=== PATIENT | male | born 1945 ===

== ENCOUNTER 2016-07-23 07:18 | Inpatient (IN) | payer OTHER, MEDICARE ==
[2016-07-23 07:18] VITALS: BMI 26.4
--- NOTE | 2016-07-23 07:27 | C.PDOC ---
History Of Present Illness 70M c/o fever, abdominal pain, nausea, vomiting, headache since last night. no exac or reliev fx. has not taken anything for sx. had some chest pain only with vomiting none now. hx cabg. Time Seen by Provider: 07/23/16 07:21 Chief Complaint (Nursing): Dizziness/Lightheaded Past Medical History Vital Signs: Last Vital Signs Temp 97.9 F 07/24/16 07:05 Pulse 66 07/24/16 07:05 Resp 20 07/24/16 07:05 BP 120/65 07/24/16 07:05 Pulse Ox 96 07/24/16 07:05 - Medical History PMH: Anxiety, Arthritis, Gastritis, HTN, Hypercholesterolemia Denies: HIV Surgical History: CABG (2008 pt states they think they had double bypass but is not sure), Coronary Stent (2 stents 2008), Endoscopy (2012), Pacemaker ( inserted 2004, removed 2007) - [facility] Procedures CYSTOSCOPY NEC (07/16/13) ENDOSC POLYPECTOMY OF LG INTEST (10/04/13) ENDOSCOP INSERTION OF STENT (TUBE) INTO BILE DUCT (11/21/14) INSERT INT PENILE PROSTH (01/02/13) Family History: States: Other Other Family History: nc - Social History Hx Alcohol Use: No Hx Substance Use: No - Immunization History Hx Tetanus Toxoid Vaccination: No Review Of Systems Except As Marked, All Systems Reviewed And Found Negative. Constitutional: Positive for: Fever, Chills, Malaise Cardiovascular: Negative for: Chest Pain, Edema Respiratory: Negative for: Cough, Shortness of Breath, Hemoptysis Gastrointestinal: Positive for: Nausea, Vomiting, Abdominal Pain. Negative for : Diarrhea Neurological: Positive for: Headache. Negative for: Weakness, Numbness Physical Exam - Physical Exam Appears: Non-toxic, No Acute Distress Skin: Warm, Dry Head: Atraumatic Eye(s): bilateral: PERRL Nose: No Epistaxis Oral Mucosa: Moist Neck: Supple Cardiovascular: Rhythm Regular Respiratory: No Decreased Breath Sounds, No Accessory Muscle Use, No Rales, No Rhonchi, No Stridor, No Wheezing Gastrointestinal/Abdominal: Soft, Tenderness (LLQ), No Distention, No Guarding, No Rebound Extremity: No Swelling Neurological/Psych: Oriented x3, Other (no focal deficits) ED Course And Treatment - Laboratory Results Result Diagrams: 07/24/16 07:11 07/24/16 07:11 Medical Decision Making Medical Decision Making: ecg- sinus tach 113, nl axis, no acute ischemia cxr- nad Disposition - Disposition Disposition: HOSPITALIZED Disposition Time: 11:58 Condition: STABLE - Clinical Impression Clinical Impression: elevated liver enzymes, Fever, Abdominal pain
[2016-07-23] MEDS ORDERED: Sodium Chloride 0.9% 1,000 ML IV ONE ×2 (07:36→08:57)
[2016-07-23] MEDS ORDERED: Sodium Chloride 0.9% 1,000 ML ONE ×2 (08:04→09:07)
[2016-07-23 08:10] LABS: BASO # 0.1 K/uL (0.0-0.2); BASO % 0.5 % (0.0-2.0); EOS % 0.1 % (0.0-4.0); HEMATOCRIT 43.4 % (35.0-51.0); LYMPH # 0.4 K/uL (1.0-4.3); LYMPH % 2.3 % (20.0-40.0); MEAN CELL VOLUME 83.8 fL (80.0-94.0); MEAN CORPUSCULAR HEMOGLOBIN 28.7 pg (27.0-31.0); MEAN CORPUSCULAR HGB CONC 34.3 g/dL (33.0-37.0); MEAN PLATELET VOLUME 10.7 fL (7.2-11.7); MONO # 1.4 K/uL (0.0-0.8); MONO % 7.6 % (0.0-10.0); NRBC % 0.1 % (0.0-2.0); PLATELET COUNT 145 K/uL (130-400); RED CELL DISTRIBUTION WIDTH 13.5 % (11.5-14.5)
[2016-07-23 08:12] LABS: WHITE BLOOD COUNT 18.1 K/uL (4.8-10.8)
[2016-07-23 08:16] LABS: CHLORIDE 101 mmol/L (98-107); SODIUM 133 mmol/L (132-148)
[2016-07-23 08:17] LABS: POTASSIUM 4.1 mmol/L (3.6-5.2)
[2016-07-23 08:19] LABS: ALKALINE PHOSPHATASE 192 U/L (38-126); ALT/SGPT 161 U/L (21-72); AST/SGOT 134 U/L (17-59); BILIRUBIN,TOTAL 4.6 mg/dL (0.2-1.3); BLOOD UREA NITROGEN 16 mg/dL (9-20); CALCIUM 8.3 mg/dl (8.6-10.4); CARBON DIOXIDE 21 mmol/L (22-30); GFR AFRICAN-AMERICAN > 60; GLUCOSE,RANDOM 110 mg/dL (75-110); TOTAL PROTEIN 8.3 g/dL (6.3-8.3)
[2016-07-23 08:26] LABS: VENOUS BLOOD GAS BASE EXCESS -1.7 mmol/L (0.0-2.0); VENOUS BLOOD GAS PCO2 34 mmHg (40-60); VENOUS BLOOD PH 7.42 (7.32-7.43)
[2016-07-23] MEDS ORDERED: Iohexol 240 (50 ml) ONE (08:32)
[2016-07-23 08:34] LABS: EOSINOPHIL 1 % (0-4); NEUTROPHIL 76 % (50-75); TOTAL CELLS COUNTED 100
[2016-07-23 08:35] LABS: LARGE PLATELETS PRESENT
[2016-07-23] MEDS ORDERED: Piperacill/Tazo 3.375gm in Dex 3.375 GM/50 ML BAG IVPB STA (08:57)
[2016-07-23] MEDS ORDERED: Piperacillin/Tazobact 3.375 gm 100 ML IVPB ONE (09:07)
--- NOTE | 2016-07-23 09:15 | RAD ---
HISTORY: cp COMPARISON: No prior. FINDINGS: LUNGS: No active pulmonary disease. PLEURA: No significant pleural effusion identified, no pneumothorax apparent. CARDIOVASCULAR: Normal heart size. Status post CABG. Pacemaker lead noted without control module. OSSEOUS STRUCTURES: No significant abnormalities. VISUALIZED UPPER ABDOMEN: Normal. OTHER FINDINGS: None. IMPRESSION: No active disease.
[2016-07-23 09:48] LABS: RBC URINE 3 /hpf (0-3); URINE BILIRUBIN NEGATIVE (NEGATIVE); URINE BLOOD 2+ (NEGATIVE); URINE COLOR Amber (YELLOW); URINE GLUCOSE (UA) NORMAL (Normal); URINE KETONE NEGATIVE (NEGATIVE); URINE LEUKOCYTE ESTERASE NEG Leu/uL (Negative); URINE PROTEIN 1+ mg/dL (NEGATIVE); WBC URINE 1 /hpf (0-5)
--- NOTE | 2016-07-23 10:45 | CT ---
PROCEDURE: CT Abdomen and Pelvis without intravenous contrast HISTORY: abd pain COMPARISON: None. TECHNIQUE: Without contrast.. Contrast Dose: 0 Radiation dose: Total exam DLP = 401.90 mGy-cm. This CT exam was performed using one or more of the following dose reduction techniques: Automated exposure control, adjustment of the mA and/or kV according to patient size, and/or use of iterative reconstruction technique. FINDINGS: LOWER THORAX: Unremarkable. LIVER: Unremarkable. No gross lesion or ductal dilatation. GALLBLADDER AND BILE DUCTS: No calcified gallstones. No mural thickening. Biliary stent noted in common bile duct extending to the 2nd portion of the duodenum. No biliary dilatation. PANCREAS: Unremarkable. No gross lesion or ductal dilatation. SPLEEN: Unremarkable. ADRENALS: Unremarkable. No mass. KIDNEYS AND URETERS: Unremarkable. No hydronephrosis. No solid mass. VASCULATURE: Unremarkable. No aortic aneurysm. BOWEL: Unremarkable. No obstruction. No gross mural thickening. APPENDIX: Unremarkable. Normal appendix. PERITONEUM: Unremarkable. No free fluid. No free air. LYMPH NODES: Unremarkable. No enlarged lymph nodes. BLADDER: Unremarkable. REPRODUCTIVE: Normal prostate BONES: No acute fracture. OTHER FINDINGS: None. IMPRESSION: No acute abnormality. Biliary stent noted. No evidence of biliary obstruction. No evidence of cholelithiasis or cholecystitis.
--- NOTE | 2016-07-23 14:14 | CP.PCM.HP ---
History of Present Illness - History of Present Illness History of Present Illness: COMPREHENSIVE HISTORY & PHYSICAL EXAM HPI 70M c/o fever, abdominal pain, nausea, vomiting, headache since last night. NO VOMITING . NO CP PAST HIST. 2 BILIARY STENT 2016 CABG 2-3 V WITH 2 MORE STENTS HTN/DM BLADDER SURGERY/PENILE PRASTHESIS PER. PACEMAKER 2005, REMOCED 2007 PERSONAL HIST: Smoking. N Alcohol. N Allergy N Travel_- . FAMILY HIST : ROS : Constitutional: GEN MALAISE Eyes: Negative for redness, swelling, itching, discharge, vision changes, blurry vision, double vision, glaucoma, cataracts, Ears: Negative for hearing loss, ringing, , tinnitus, vertigo Nose: Negative for rhinorrhea, stuffiness, sniffing, itching, postnasal drip, discoloration, nasal congestion and epistaxis. Throat: Negative for throat clearing, sore throat, hoarseness, difficulty swallowing and difficulty speaking. Respiratory: Negative for cough, chest tightness, sputum or phlegm, chronic cough, hemoptysis, wheezing, snoring at night, pleuritic chest pain and daytime somnolence. Cardiovascular: Negative for chest pain, palpitations, orthopnea, PND, Edema of legs, leg cramps, angina, claudication, , irregular heartbeat, Neurology: Negative for irritability, muscle weakness, numbness and tingling, seizures, tremors, migraines, slurred speech, syncope, memory loss, mood changes , recurrent headaches Gastrointestinal: GEN ABD PAIN, NUSEA NO VOMITING/GI BLEEDING Genitourinary: Negative for frequent urination, hematuria, discharge, incontinence, urinary retention, frequent UTI, Psychiatric: Negative for depression, anxiety/panic, suicidal tendencies, Musculoskeletal: Negative for swollen joints, back pain, , neck pain, morning stiffness of joints, . Skin: Negative for rash, ulcers, itching, dry skin and pigmented lesions. P/E: Constitutional: Appears stated age and in no apparent distress. Head: Normocephalic. Ears: External ear canals patent without inflammation. Tympanic membranes intact with normal light reflex and landmark. Eyes: Pupils are central, bilaterally equal, symmetrical and reacts to light with normal movements and no icterus or pallor. Nose: External nares are patent. Mucosa is pink Mouth-Throat: Good general appearance and condition. No post-pharyngeal/oropharyngeal erythema and tonsillar hypertrophy. Good dental hygiene. Neck-Lymphatic: Neck is supple with normal ROM, no thyromegaly, lymph nodes or masses. JVD is normal with no carotid bruit. Lungs: Clear to percussion and auscultation with bilateral normal air entry. Cardiovascular: S1 and S2 are normal with no murmurs, gallops and rub. GI Exam: No hepatomegaly. Abdomen is soft and non-tender. No Organomegaly , masses or hernias are evident and bowel sounds are normal and active. Neurology: Higher function and all cranial nerves intact, with no gross motor or sensory deficit. Superficial and deep reflexes are normal with downwards planters. No cerebellar deficit with normal gait. Musculoskeletal: No tender spots with normal curvature of the spine with no swelling or restricted ROM of the small and large joints. Extremities: Homans sign absent. Intact pulses with no pitting edema, calf tenderness or skin color changes. Skin: No rash, eruptions or abnormal skin pigmentation LAB/RADIOLOGY: ASSESMENT : ABD PAIN WITH H/O 2 BILIARY STENT AND ABNORMAL LFT WITH HIGH BILIRUBIN , R/O OBST. STENT OR ASCENDING CHOLENGITIS CAD/CABG DM/HTN R/O SEPSIS PLAN: SEE ORDERS Present on Admission - Present on Admission Any Indicators Present on Admission: No Past Patient History - Past Medical History & Family History Past Medical History?: Yes - Past Social History Smoking Status: Former Smoker - CARDIAC Hx Hypercholesterolemia: Yes Hx Hypertension: Yes Hx Pacemaker: Yes (inserted 2004, removed 2007) - PULMONARY Hx Respiratory Disorders: No - NEUROLOGICAL Hx Neurological Disorder: No - HEENT Hx HEENT Problems: Yes Hx Cataracts: Yes (b/l eyes) Hx Glaucoma: Yes - RENAL Hx Chronic Kidney Disease: No - ENDOCRINE/METABOLIC Hx Endocrine Disorders: Yes (pt states they have a swollen pancreas) - HEMATOLOGICAL/ONCOLOGICAL Hx Human Immunodeficiency Virus (HIV): No - INTEGUMENTARY Hx Dermatological Problems: Yes Hx Eczema: Yes - MUSCULOSKELETAL/RHEUMATOLOGICAL Hx Arthritis: Yes Hx Falls: Yes - GASTROINTESTINAL Hx Gastritis: Yes - GENITOURINARY/GYNECOLOGICAL Hx Genitourinary Disorders: Yes Hx Prostate Cancer: Yes Other/Comment: bladder tumor - PSYCHIATRIC Hx Anxiety: Yes Hx Substance Use: No - SURGICAL HISTORY Hx Coronary Artery Bypass Graft: Yes (2008 pt states they think they had double bypass but is not sure) Hx Coronary Stent: Yes (2 stents 2008) - ANESTHESIA Hx Anesthesia: Yes Hx Anesthesia Reactions: No Hx Malignant Hyperthermia: No Meds Allergies/Adverse Reactions: Allergies Allergy/AdvReac Type Severity Reaction Status Date / Time duloxetine [From Cymbalta] Allergy Intermediate RASH Verified 07/23/16 07:30 IV CONTRAST Allergy Intermediate RASH Uncoded 07/23/16 07:30 Results - Vital Signs Recent Vital Signs: Last Vital Signs Temp 97.6 F 07/23/16 13:30 Pulse 62 07/23/16 13:30 Resp 20 07/23/16 13:30 BP 122/63 07/23/16 13:30 Pulse Ox 99 07/23/16 13:30 - Labs Result Diagrams: 07/23/16 08:03 07/23/16 08:03
[2016-07-23] MEDS: CEFEPIME IVPB SCH (18:03)
[2016-07-23] MEDS: DEXTROSE IVPB SCH (18:03)
--- NOTE | 2016-07-23 18:32 | CP.PCM.CON ---
History of Present Illness - History of Present Illness History of Present Illness: INFECTIOUS DISEASE CONSULT. 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 Patient also states he had projectile vomiting. Patient also complains of headache since last night but denies any diarrhea or obstipation. On admission patient was found to have leukocytosis of 18.1 with 10% bandemia and patient was also found to be jaundiced with elevated bilirubin and elevated transaminases. CT of the abdomen and pelvis with by mouth contrast reveals biliary stent in common bile duct with no biliary obstruction and no cholelithiasis or cholecystitis. Chest x-ray 07/23/16 was also unremarkable. Patient was given a dose of IV Zosyn in the ER after appropriate cultures. Patient also complains of abdominal bloating and epigastric pain. INFECTIOUS DISEASE CONSULTATION REQUESTED BY PMD FOR FEVERS, LEUKOCYTOSIS AND PROBABLE SEPSIS. PAST HIST. 2 BILIARY STENT 2014 CABG 2-3 V WITH 2 MORE STENTS (2008 ) HTN/DM CA OF PROSTATE SURGERY/PENILE PROSTHESIS PERM. PACEMAKER 2005, REMOCED 2007 PERSONAL HIST: Smoking. N Alcohol. N Allergy N Travel_- [place] . FAMILY HIST : ALLERGY; IV CONTRAST, CYMBALTA Review of Systems - Constitutional Constitutional: Chills, Fever, Headache - EENT Eyes: absent: Change in Vision Ears: absent: Dizziness Nose/Mouth/Throat: Dry Mouth. absent: Mouth Lesions - Cardiovascular Cardiovascular: absent: Chest Pain - Respiratory Respiratory: absent: Cough - Gastrointestinal Gastrointestinal: Abdominal Pain, Dyspepsia, Nausea, Vomiting. absent: Constipation, Diarrhea, Melena - Genitourinary Genitourinary: Hx /Renal Surgery (S/P TURP/PENILE PROSTHESIS.). absent: Dysuria - Musculoskeletal Musculoskeletal: absent: Arthralgias - Integumentary Integumentary: absent: Rash - Neurological Neurological: Headaches - Psychiatric Psychiatric: Anxiety - Hematologic/Lymphatic Hematologic: As Per HPI Past Patient History - Past Medical History & Family History Past Medical History?: Yes - Past Social History Smoking Status: Former Smoker - CARDIAC Hx Hypercholesterolemia: Yes Hx Hypertension: Yes Hx Pacemaker: Yes (inserted 2004, removed 2007) - PULMONARY Hx Respiratory Disorders: No - NEUROLOGICAL Hx Neurological Disorder: No - HEENT Hx HEENT Problems: Yes Hx Cataracts: Yes (b/l eyes) Hx Glaucoma: Yes - RENAL Hx Chronic Kidney Disease: No - ENDOCRINE/METABOLIC Hx Endocrine Disorders: Yes (pt states they have a swollen pancreas) - HEMATOLOGICAL/ONCOLOGICAL Hx Human Immunodeficiency Virus (HIV): No - INTEGUMENTARY Hx Dermatological Problems: Yes Hx Eczema: Yes - MUSCULOSKELETAL/RHEUMATOLOGICAL Hx Arthritis: Yes Hx Falls: Yes - GASTROINTESTINAL Hx Gastritis: Yes - GENITOURINARY/GYNECOLOGICAL Hx Genitourinary Disorders: Yes Hx Prostate Cancer: Yes Other/Comment: bladder tumor - PSYCHIATRIC Hx Anxiety: Yes Hx Substance Use: No - SURGICAL HISTORY Hx Coronary Artery Bypass Graft: Yes (2008 pt states they think they had double bypass but is not sure) Hx Coronary Stent: Yes (2 stents 2008) - ANESTHESIA Hx Anesthesia: Yes Hx Anesthesia Reactions: No Hx Malignant Hyperthermia: No Meds Allergies/Adverse Reactions: Allergies Allergy/AdvReac Type Severity Reaction Status Date / Time duloxetine [From Cymbalta] Allergy Intermediate RASH Verified 07/23/16 07:30 IV CONTRAST Allergy Intermediate RASH Uncoded 07/23/16 07:30 - Medications Medications: Current Medications Alprazolam (Xanax) 1 mg PO TID PRN PRN Reason: Anxiety Carvedilol (Coreg) 25 mg PO BID [facility] Last Admin: 07/23/16 18:03 Dose: 25 mg Enoxaparin Sodium (Lovenox) 40 mg SC DAILY [facility] Hydrochlorothiazide (Microzide) 12.5 mg PO DAILY [facility] Cefepime HCl (Maxipime Iv 1 Gm Premix) 1 gm in 50 mls @ 100 mls/hr IVPB Q12H [facility] Last Admin: 07/23/16 18:03 Dose: 100 mls/hr Lisinopril (Zestril) 10 mg PO DAILY [facility] Pantoprazole Sodium (Protonix Inj) 40 mg IVP DAILY [facility] Last Admin: 07/23/16 14:59 Dose: 40 mg Physical Exam - Constitutional Appears: No Acute Distress - Head Exam Head Exam: NORMAL INSPECTION - Eye Exam Eye Exam: EOMI, Normal appearance, PERRL, Scleral icterus - ENT Exam ENT Exam: Normal Oropharynx - Neck Exam Neck exam: Positive for: Normal Inspection. Negative for: Lymphadenopathy, Meningismus - Respiratory Exam Respiratory Exam: Clear to Auscultation Bilateral, NORMAL BREATHING PATTERN - Cardiovascular Exam Cardiovascular Exam: REGULAR RHYTHM, +S1, +S2 - GI/Abdominal Exam GI & Abdominal Exam: Distended, Soft, Tenderness (EPIGASTRIC AND MID UMBILICAL.) . absent: Guarding - Extremities Exam Extremities exam: Positive for: pedal pulses present. Negative for: calf tenderness, pedal edema - Neurological Exam Neurological exam: Alert, CN II-XII Intact, Oriented x3, Reflexes Normal - Psychiatric Exam Psychiatric exam: Normal Mood - Skin Skin Exam: Normal Color, Warm Results - Vital Signs Recent Vital Signs: Last Vital Signs Temp 97.3 F L 07/23/16 15:24 Pulse 78 07/23/16 15:24 Resp 18 07/23/16 15:24 BP 152/72 H 07/23/16 18:03 Pulse Ox 98 07/23/16 15:24 - Labs Result Diagrams: 07/23/16 08:03 07/23/16 08:03 - Imaging and Cardiology /AND PELVIS WITH BY MOUTH CONTRAST Status: Report reviewed by me (biliary stent common bile duct, no biliary obstruction, no cholelithiasis or cholecystitis.) Assessment & Plan (1) Sepsis Status: Acute (2) Abdominal pain Status: Acute (3) Fever Status: Acute (4) Hyperbilirubinemia Status: Acute (5) S/P TURP (transurethral resection of prostate) Status: Acute (6) CAD (coronary artery disease) of artery bypass graft Status: Acute - Assessment and Plan (Free Text) Assessment: IMPRESSION; -SEPSIS/LEUKOCYTOSIS - JAUNDICE ? ASCENDING CHOLANGITIS/HX BILIARY STENT/CBD STRICTURE (2014 ) -S/P CABG / 2X STENTS-2008 -hISTORY OF PROSTATE SURGERY S/P TURP -PENILE PROSTHESES. -HYPERTENSION. -DM. PLAN ; PANCULTURES ESR,CRP,NINA. ACUTE HEPATITIS SCREEN-A.B, C HIV 1-ANTIBODY HIV [id number] SCREEN LYMPHOCYTE SUBSET STUDIES. START iv CEFEPIME 1 G EVERY 12 HOURLY 07/23/16 START iv VANCOMYCIN 1 G EVERY 12 HOURLY FOR STREPTOCOCCAL COVERAGE. VANCO TROUGH LEVEL ON THE FOURTH DOSE. MONITOR RENAL FUNCTIONS. GI EVAL IN PROGRESS WILL FOLLOW ALONG WITH YOU AND MAKE RECOMMENDATIONS NEEDED.
[2016-07-23] MEDS ORDERED: Vancomycin 1 gm/NS 200 ml 1 GM/200 ML BAG IVPB SCH (19:45)
[2016-07-23] MEDS: Vancomycin 1 gm/NS 200 ml 1 GM/200 ML BAG IVPB SCH (21:24)
[2016-07-24] MEDS: DEXTROSE IVPB SCH ×2 (05:31→17:22)
[2016-07-24] MEDS: CEFEPIME IVPB SCH ×2 (05:31→17:22)
[2016-07-24 07:36] LABS: BASO % 0.5 % (0.0-2.0); EOS % 10.3 % (0.0-4.0); HEMATOCRIT 38.1 % (35.0-51.0); LYMPH # 0.9 K/uL (1.0-4.3); LYMPH % 9.7 % (20.0-40.0); MEAN CELL VOLUME 85.3 fL (80.0-94.0); MEAN CORPUSCULAR HEMOGLOBIN 28.8 pg (27.0-31.0); MEAN CORPUSCULAR HGB CONC 33.8 g/dL (33.0-37.0); MEAN PLATELET VOLUME 10.9 fL (7.2-11.7); MONO # 1.1 K/uL (0.0-0.8); MONO % 11.9 % (0.0-10.0); PLATELET COUNT 108 K/uL (130-400); RED CELL DISTRIBUTION WIDTH 14.1 % (11.5-14.5); WHITE BLOOD COUNT 9.5 K/uL (4.8-10.8)
[2016-07-24 07:50] LABS: CHLORIDE 107 mmol/L (98-107)
[2016-07-24 07:51] LABS: POTASSIUM 3.8 mmol/L (3.6-5.2); SODIUM 136 mmol/L (132-148)
[2016-07-24 07:53] LABS: GFR AFRICAN-AMERICAN > 60
[2016-07-24 07:54] LABS: ALB/GLOB RATIO 0.9 (1.0-2.1); ALKALINE PHOSPHATASE 145 U/L (38-126); ALT/SGPT 105 U/L (21-72); AST/SGOT 64 U/L (17-59); BILIRUBIN,DIRECT 1.8 mg/dL (0.0-0.4); BILIRUBIN,TOTAL 2.6 mg/dL (0.2-1.3); BLOOD UREA NITROGEN 14 mg/dL (9-20); CALCIUM 7.6 mg/dl (8.6-10.4); CARBON DIOXIDE 22 mmol/L (22-30); GLUCOSE,RANDOM 91 mg/dL (75-110); TOTAL PROTEIN 6.7 g/dL (6.3-8.3)
[2016-07-24] MEDS: Vancomycin 1 gm/NS 200 ml 1 GM/200 ML BAG IVPB SCH ×2 (08:16→21:45)
--- NOTE | 2016-07-24 08:17 | CP.PCM.CON ---
<Debbie Moulton - Last Filed: 07/24/16 09:55> History of Present Illness - History of Present Illness History of Present Illness: Gastroenterology Fellow/PGY4 Consult Note 70 year old male with history of Hypertension, CAD s/p stents and CABG, left ICA 55% stenosis, and biliary stent placement 10/2014 with concern for choledocholithiasis presenting with abdominal pain. Patient notes sudden onset of diffuse abdominal pain, nausea, ten episodes of clear vomitus, subjective fever, chills, and sweats one day prior to Er presentation. He denies sick contacts, recent travel, or antibiotics. Notes chronic acid reflux, heartburn, indigestion, and bloating despite dietary modifications of avoiding tomato, garlic, onion, chocolate, and coffee. Denies hematemesis, diarrhea, constipation , melena, hematochezia, or unintentional weight loss. No prior colonoscopy. ERCP 11/22/14 for CBD obstruction with suspicion for choledocholithiasis with meniscus noted during procedure. Further interventions of sphincterotomy and balloon sweep were not performed due to being clinically unstable per documentation. Family- mother- stomach cancer Social- denies tobacco, alcohol, illicit drug use Surgery-penile prosthesis, CABG, biliary stent, cardiac stents, pacemaker 2005- removed 2007 Review of Systems - Review of Systems Review of Systems: A 12-point review of systems negative except for as above Past Patient History - Past Medical History & Family History Past Medical History?: Yes - Past Social History Smoking Status: Former Smoker - CARDIAC Hx Hypercholesterolemia: Yes Hx Hypertension: Yes Hx Pacemaker: Yes (inserted 2004, removed 2007) - PULMONARY Hx Respiratory Disorders: No - NEUROLOGICAL Hx Neurological Disorder: No - HEENT Hx HEENT Problems: Yes Hx Cataracts: Yes (b/l eyes) Hx Glaucoma: Yes - RENAL Hx Chronic Kidney Disease: No - ENDOCRINE/METABOLIC Hx Endocrine Disorders: Yes (pt states they have a swollen pancreas) - HEMATOLOGICAL/ONCOLOGICAL Hx Human Immunodeficiency Virus (HIV): No - INTEGUMENTARY Hx Dermatological Problems: Yes Hx Eczema: Yes - MUSCULOSKELETAL/RHEUMATOLOGICAL Hx Arthritis: Yes - GASTROINTESTINAL Hx Gastritis: Yes - GENITOURINARY/GYNECOLOGICAL Hx Genitourinary Disorders: Yes Hx Prostate Cancer: Yes Other/Comment: bladder tumor - PSYCHIATRIC Hx Anxiety: Yes Hx Substance Use: No - SURGICAL HISTORY Hx Coronary Artery Bypass Graft: Yes (2008 pt states they think they had double bypass but is not sure) Hx Coronary Stent: Yes (2 stents 2008) - ANESTHESIA Hx Anesthesia: Yes Hx Anesthesia Reactions: No Hx Malignant Hyperthermia: No Meds Allergies/Adverse Reactions: Allergies Allergy/AdvReac Type Severity Reaction Status Date / Time duloxetine [From Cymbalta] Allergy Intermediate RASH Verified 07/23/16 07:30 IV CONTRAST Allergy Intermediate RASH Uncoded 07/23/16 07:30 - Medications Medications: Current Medications Alprazolam (Xanax) 1 mg PO TID PRN PRN Reason: Anxiety Carvedilol (Coreg) 25 mg PO BID [facility] Last Admin: 07/23/16 18:03 Dose: 25 mg Enoxaparin Sodium (Lovenox) 40 mg SC DAILY [facility] Hydrochlorothiazide (Microzide) 12.5 mg PO DAILY [facility] Cefepime HCl (Maxipime Iv 1 Gm Premix) 1 gm in 50 mls @ 100 mls/hr IVPB Q12H [facility] Last Admin: 07/24/16 05:31 Dose: 100 mls/hr Vancomycin/Sodium Chloride (Vancocin) 1 gm in 200 mls @ 133.333 mls/hr IVPB Q12H [facility] Stop: 07/28/16 21:01 Last Admin: 07/23/16 21:24 Dose: 133.333 mls/hr Lisinopril (Zestril) 10 mg PO DAILY [facility] Pantoprazole Sodium (Protonix Inj) 40 mg IVP DAILY [facility] Last Admin: 07/23/16 14:59 Dose: 40 mg Physical Exam - Constitutional Appears: Non-toxic, No Acute Distress - Head Exam Head Exam: ATRAUMATIC, NORMOCEPHALIC - Eye Exam Eye Exam: EOMI, PERRL Pupil Exam: PERRL. absent: Miosis, Mydriatic - ENT Exam ENT Exam: Mucous Membranes Moist, Normal Oropharynx - Neck Exam Neck exam: Positive for: Full Rom, Normal Inspection - Respiratory Exam Respiratory Exam: Clear to Auscultation Bilateral. absent: Rales, Rhonchi, Wheezes - Cardiovascular Exam Cardiovascular Exam: RRR, +S1, +S2. absent: Gallop, Rubs - GI/Abdominal Exam GI & Abdominal Exam: Normal Bowel Sounds, Soft. absent: Distended, Firm, Guarding, Organomegaly, Rebound, Rigid, Tenderness - Extremities Exam Extremities exam: Positive for: full ROM. Negative for: pedal edema - Neurological Exam Neurological exam: Alert - Psychiatric Exam Psychiatric exam: Normal Affect, Normal Mood - Skin Skin Exam: Dry, Intact, Normal Color, Warm Results - Vital Signs Recent Vital Signs: Last Vital Signs Temp 97.9 F 07/24/16 07:05 Pulse 66 07/24/16 07:05 Resp 20 07/24/16 07:05 BP 120/65 07/24/16 07:05 Pulse Ox 96 07/24/16 07:05 - Labs Result Diagrams: 07/24/16 07:11 07/24/16 07:11 Labs: Laboratory Results - last 24 hr 07/23/16 07/24/16 07/24/16 20:06 07:11 07:11 WBC 9.5 RBC 4.47 Hgb 12.9 D Hct 38.1 MCV 85.3 MCH 28.8 MCHC 33.8 RDW 14.1 Plt Count 108 L D MPV 10.9 Neut % (Auto) 67.6 Lymph % (Auto) 9.7 L [place] % (Auto) 11.9 H Eos % (Auto) 10.3 H Baso % (Auto) 0.5 Neut # 6.4 Lymph # 0.9 L [place] # 1.1 H Eos # 1.0 H Baso # 0.0 Sodium 136 Potassium 3.8 Chloride 107 Carbon Dioxide 22 Anion Gap 11 BUN 14 Creatinine 1.2 Est GFR ( Amer) > 60 Est GFR (Non-Af Amer) 60 Random Glucose 91 Calcium 7.6 L Total Bilirubin 2.6 H Direct Bilirubin 1.8 H AST 64 H D ALT 105 H D Alkaline Phosphatase 145 H D C-React Prot High Sens Total Protein 6.7 Albumin 3.1 L D Globulin 3.6 Albumin/Globulin Ratio 0.9 L Hepatitis A IgM Ab Negative Hep Bs Antigen Negative Hep B Core IgM Ab Negative Hepatitis C Antibody Negative 07/24/16 07:11 WBC RBC Hgb Hct MCV MCH MCHC RDW Plt Count MPV Neut % (Auto) Lymph % (Auto) [place] % (Auto) Eos % (Auto) Baso % (Auto) Neut # Lymph # [place] # Eos # Baso # Sodium Potassium Chloride Carbon Dioxide Anion Gap BUN Creatinine Est GFR ( Amer) Est GFR (Non-Af Amer) Random Glucose Calcium Total Bilirubin Direct Bilirubin AST ALT Alkaline Phosphatase C-React Prot High Sens > 15.00 H Total Protein Albumin Globulin Albumin/Globulin Ratio Hepatitis A IgM Ab Hep Bs Antigen Hep B Core IgM Ab Hepatitis C Antibody Assessment & Plan - Assessment and Plan (Free Text) Assessment: 70 year old male with history of Hypertension, CAD s/p stents and CABG, left ICA 55% stenosis, and biliary stent placement 10/2014 with concern for choledocholithiasis presenting with abdominal pain. ERCP 11/22/14 for CBD obstruction with suspicion for choledocholithiasis with meniscus noted during procedure. Further interventions of sphincterotomy and balloon sweep were not performed due to being clinically unstable per documentation. No prior colonoscopy. Plan: >biliary stent will require exchange >ERCP next week Tuesday, will require urgent intervention for any sign of decompensation - previous suspicion of choledocholithiasis 10/2014 >monitor fever curve, WBC count, and abdominal pain >continue Cefepime >supportive care: pain control, antiemetics, PPI, IVFs >remain on clear liquid diet in case of need for urgent intervention >close monitoring of clinical course <Obdulio Collier - Last Filed: 07/24/16 10:07> Meds - Medications Medications: Current Medications Alprazolam (Xanax) 1 mg PO TID PRN PRN Reason: Anxiety Carvedilol (Coreg) 25 mg PO BID [facility] Last Admin: 07/23/16 18:03 Dose: 25 mg Enoxaparin Sodium (Lovenox) 40 mg SC DAILY [facility] Hydrochlorothiazide (Microzide) 12.5 mg PO DAILY [facility] Cefepime HCl (Maxipime Iv 1 Gm Premix) 1 gm in 50 mls @ 100 mls/hr IVPB Q12H [facility] Last Admin: 07/24/16 05:31 Dose: 100 mls/hr Vancomycin/Sodium Chloride (Vancocin) 1 gm in 200 mls @ 133.333 mls/hr IVPB Q12H [facility] Stop: 07/28/16 21:01 Last Admin: 07/24/16 08:16 Dose: 133.333 mls/hr Lisinopril (Zestril) 10 mg PO DAILY [facility] Pantoprazole Sodium (Protonix Inj) 40 mg IVP DAILY [facility] Last Admin: 07/23/16 14:59 Dose: 40 mg Results - Vital Signs Recent Vital Signs: Last Vital Signs Temp 97.9 F 07/24/16 07:05 Pulse 66 07/24/16 07:05 Resp 20 07/24/16 07:05 BP 120/65 07/24/16 07:05 Pulse Ox 96 07/24/16 07:05 - Labs Result Diagrams: 07/24/16 07:11 07/24/16 07:11 Labs: Laboratory Results - last 24 hr 07/23/16 07/24/16 07/24/16 20:06 07:11 07:11 WBC 9.5 RBC 4.47 Hgb 12.9 D Hct 38.1 MCV 85.3 MCH 28.8 MCHC 33.8 RDW 14.1 Plt Count 108 L D MPV 10.9 Neut % (Auto) 67.6 Lymph % (Auto) 9.7 L [place] % (Auto) 11.9 H Eos % (Auto) 10.3 H Baso % (Auto) 0.5 Neut # 6.4 Lymph # 0.9 L [place] # 1.1 H Eos # 1.0 H Baso # 0.0 Sodium 136 Potassium 3.8 Chloride 107 Carbon Dioxide 22 Anion Gap 11 BUN 14 Creatinine 1.2 Est GFR ( Amer) > 60 Est GFR (Non-Af Amer) 60 Random Glucose 91 Calcium 7.6 L Total Bilirubin 2.6 H Direct Bilirubin 1.8 H AST 64 H D ALT 105 H D Alkaline Phosphatase 145 H D C-React Prot High Sens Total Protein 6.7 Albumin 3.1 L D Globulin 3.6 Albumin/Globulin Ratio 0.9 L Hepatitis A IgM Ab Negative Hep Bs Antigen Negative Hep B Core IgM Ab Negative Hepatitis C Antibody Negative HIV 1&2 Antibody Screen 07/24/16 07/24/16 07/24/16 07:11 07:11 07:11 WBC RBC Hgb Hct MCV MCH MCHC RDW Plt Count MPV Neut % (Auto) Lymph % (Auto) [place] % (Auto) Eos % (Auto) Baso % (Auto) Neut # Lymph # [place] # Eos # Baso # Sodium Potassium Chloride Carbon Dioxide Anion Gap BUN Creatinine Est GFR ( Amer) Est GFR (Non-Af Amer) Random Glucose Calcium Total Bilirubin Direct Bilirubin AST ALT Alkaline Phosphatase C-React Prot High Sens > 15.00 H Total Protein Albumin Globulin Albumin/Globulin Ratio Hepatitis A IgM Ab Hep Bs Antigen Hep B Core IgM Ab Hepatitis C Antibody Negative HIV 1&2 Antibody Screen Negative Attending/Attestation - Attestation I have personally seen and examined this patient.: Yes I have fully participated in the care of the patient.: Yes I have reviewed all pertinent clinical information: Yes Notes (Text): 07/24/16 10:01 I have seen and examined patient with GI fellow. Agree with above findings with following additions. In brief, this is a 70 year old male with history of HTN, CAD s/p CABG/stent, who presents to hospital with complaint of sudden onset abdominal pain, nausea, and vomiting which began yesterday. Prior to this he was in usual state of health. He describes a generalized abdominal pain mainly in umbilical region, 4/10 intensity, radiating to RUQ and associated with multiple episodes of non-bloody emesis. He denies fever/chills , weight loss, sick contacts, recent travel, recent antibiotic use, or consumption of unusual foods. He has a prior history of choledocholithaisis s/ p ERCP in 2014 with biliary stent placement. Abdominal pain, nausea, vomiting HTN CAD/CABG Leukocytosis, transaminitis with picture concerning for acute cholangitis, which poses threat to patient life - Liquid diet as tolerated - Continue with antibiotic therapy - Obtain blood culture - CT imaging reviewed by me showing intact biliary stent, likely occluded given clinical scenario. Patient will require ERCP with stent removal/exchange +/- sphincterotomy for definitive treatment. Will tentatively plan for Tuesday pending patient clinical progress. - Continue to monitor LFTs - Will monitor patient clinical course
[2016-07-24] MEDS: Enoxaparin 40 mg Syringe SC SCH (10:19)
[2016-07-24 11:05] LABS: EOSINOPHIL 5 % (0-4); NEUTROPHIL 74 % (50-75); TOTAL CELLS COUNTED 100
[2016-07-24 11:35] LABS: ERYTHROCYTE SEDIMENTATION RATE 20 mm/hr (0-15)
--- NOTE | 2016-07-24 12:06 | US ---
HISTORY: elevated LFTs COMPARISON: 11/22/2014 TECHNIQUE: Sonographic evaluation of the abdomen. FINDINGS: LIVER: Measures 12.7 cm. Heterogeneous echo characteristics of the liver. No focal hepatic masses. . Hepato pedal blood flow. Incidental cyst right hepatic lobe 11 mm. GALLBLADDER: Unremarkable. No gallstones. COMMON BILE DUCT: Measures 5.1 mm. No stones. No dilatation. PANCREAS: Unremarkable as visualized. No mass. No ductal dilatation. RIGHT KIDNEY: Measures 4.8 x 9.8cm. Normal echogenicity. No calculus, mass, or hydronephrosis. LEFT KIDNEY: Measures 4.9 x 10.2cm. Normal echogenicity. No calculus, mass, or hydronephrosis. SPLEEN: Normal in size and contour. No mass. AORTA: No aneurysmal dilatation. IVC: Unremarkable. OTHER FINDINGS: None. IMPRESSION: No significant or acute findings to account for/ related to the clinical presentation. No significant interval change compared to the prior examination(s). Additional benign and/or incidental findings described above.
--- NOTE | 2016-07-24 13:37 | CP.PCM.PN ---
Subjective - Date & Time of Evaluation Date of Evaluation: 07/24/16 Time of Evaluation: 13:36 - Subjective Subjective: CHIEF COMPLAINTS TODAY : LESS ABD.PAIN NO VOMITING ID/GI NOTED ROS. HEENT : N. Resp : No cough, wheezing ,pleuritic CP ,or hemoptysis Cardio : No anginal CP, PND, orthopnea, palpitation GI : No abd.pain, n/v ,diarrhea or GI bleeding . HEALTH WORKERS : No headache, vertigo, focal deficit. Musculoskel : No joint swelling , Derm : No rash Psych : Normal affect. Ext : No swelling ,calf pain PE. Pt. is alert awake in no distress. V.S As noted in the chart Head ,ear nose,throat and eyes : Normal. Neck : Supple with normal carotids. Lungs: Clear air entry. Heart : S1 & S2 normal with S4. No murmur. Abd : Soft non tender with normal bowel sounds. Neuro : Moves all ext. with no localized deficit. Ext : No edema with intact pulses.Non tender calves Derm : No rashes or decubitus ulcer. LABS/RADIOLOGY: ASSESSMENT/PLAN : BILIARY STENT EXCHANGE IV AB Objective - Vital Signs/Intake and Output Vital Signs (last 24 hours): Temp Pulse Resp BP Pulse Ox 97.9 F 66 20 144/66 96 07/24/16 07:05 07/24/16 07:05 07/24/16 07:05 07/24/16 10:18 07/24/16 07:05 - Medications Medications: Current Medications Alprazolam (Xanax) 1 mg PO TID PRN PRN Reason: Anxiety Carvedilol (Coreg) 25 mg PO BID [facility] Last Admin: 07/24/16 10:18 Dose: 25 mg Enoxaparin Sodium (Lovenox) 40 mg SC DAILY [facility] Last Admin: 07/24/16 10:19 Dose: Not Given Hydrochlorothiazide (Microzide) 12.5 mg PO DAILY [facility] Last Admin: 07/24/16 10:18 Dose: 12.5 mg Cefepime HCl (Maxipime Iv 1 Gm Premix) 1 gm in 50 mls @ 100 mls/hr IVPB Q12H [facility] Last Admin: 07/24/16 05:31 Dose: 100 mls/hr Vancomycin/Sodium Chloride (Vancocin) 1 gm in 200 mls @ 133.333 mls/hr IVPB Q12H [facility] Stop: 07/28/16 21:01 Last Admin: 07/24/16 08:16 Dose: 133.333 mls/hr Lisinopril (Zestril) 10 mg PO DAILY [facility] Last Admin: 07/24/16 10:19 Dose: 10 mg Pantoprazole Sodium (Protonix Inj) 40 mg IVP DAILY [facility] Last Admin: 07/24/16 10:18 Dose: 40 mg - Labs Labs: 07/24/16 07:11 07/24/16 07:11
--- NOTE | 2016-07-24 14:05 | CP.PCM.PN ---
Subjective - Date & Time of Evaluation Date of Evaluation: 07/24/16 Time of Evaluation: 14:05 - Subjective Subjective: . CHIEF COMPLAINTS TODAY : AFEBRILE, C/O less abdominal pain No vomiting, no nausea. ON CLEAR LIQUIDS. ROS. HEENT : N. Resp : No cough, wheezing ,pleuritic CP ,or hemoptysis Cardio : No anginal CP, PND, orthopnea, palpitation GI : less abdominal pain , no n/v ,diarrhea or GI bleeding . CROSSTIE INSPECTOR : No headache, vertigo, focal deficit / Musculoskel : No joint swelling , Derm : No rash Psych : Normal affect. Ext : No swelling ,calf pain PE. Pt. is alert awake in no distress. V.S As noted in the chart Head ,ear nose,throat and eyes : Normal. Neck : Supple with normal carotids. Lungs: Clear air entry. Heart : S1 & S2 normal with S4. No murmur. Abd : Soft less tender EPIGASTRIC AND MID ABDOMEN with normal bowel sounds. Neuro : Moves all ext. with no localized deficit. Ext : No edema with intact pulses.Non tender calves Derm : No rashes or decubitus ulcer. LABS/RADIOLOGY: wbc 9.5 pLATELETS 108 DECREASING LFTS IMPROVING TOTAL BILI 2.6, ast 64, alt 105. hEPATITIS SCREEN NEGATIVE HIV 1/2 ANTIBODY NEGATIVE.. -BLOOD CULTURES -VE X 24 HOURS. Objective - Vital Signs/Intake and Output Vital Signs (last 24 hours): Temp Pulse Resp BP Pulse Ox 97.9 F 66 20 144/66 96 07/24/16 07:05 07/24/16 07:05 07/24/16 07:05 07/24/16 10:18 07/24/16 07:05 Intake and Output: 07/24/16 07/24/16 06:59 18:59 Intake Total 900 Balance 900 - Medications Medications: Current Medications Alprazolam (Xanax) 1 mg PO TID PRN PRN Reason: Anxiety Carvedilol (Coreg) 25 mg PO BID [facility] Last Admin: 07/24/16 10:18 Dose: 25 mg Enoxaparin Sodium (Lovenox) 40 mg SC DAILY [facility] Last Admin: 07/24/16 10:19 Dose: Not Given Hydrochlorothiazide (Microzide) 12.5 mg PO DAILY [facility] Last Admin: 07/24/16 10:18 Dose: 12.5 mg Cefepime HCl (Maxipime Iv 1 Gm Premix) 1 gm in 50 mls @ 100 mls/hr IVPB Q12H [facility] Last Admin: 07/24/16 05:31 Dose: 100 mls/hr Vancomycin/Sodium Chloride (Vancocin) 1 gm in 200 mls @ 133.333 mls/hr IVPB Q12H [facility] Stop: 07/28/16 21:01 Last Admin: 07/24/16 08:16 Dose: 133.333 mls/hr Lisinopril (Zestril) 10 mg PO DAILY [facility] Last Admin: 07/24/16 10:19 Dose: 10 mg Pantoprazole Sodium (Protonix Inj) 40 mg IVP DAILY [facility] Last Admin: 07/24/16 10:18 Dose: 40 mg - Labs Labs: 07/24/16 07:11 07/24/16 07:11 Assessment and Plan (1) Sepsis Status: Acute (2) Abdominal pain Status: Acute (3) Fever Status: Acute (4) Hyperbilirubinemia Status: Acute (5) S/P TURP (transurethral resection of prostate) Status: Acute (6) CAD (coronary artery disease) of artery bypass graft Status: Acute - Assessment and Plan (Free Text) Assessment: IMPRESSION; -SEPSIS/LEUKOCYTOSIS - JAUNDICE ? ASCENDING CHOLANGITIS/HX BILIARY STENT/CBD STRICTURE (2014 ) -S/P CABG / 2X STENTS-2008 -hISTORY OF PROSTATE SURGERY S/P TURP -PENILE PROSTHESES. -HYPERTENSION. -DM. PLAN ; CONTINUE iv CEFEPIME 1 G EVERY 12 HOURLY 07/23/16 CONTINUE iv VANCOMYCIN 1 G EVERY 12 HOURLY FOR STREPTOCOCCAL COVERAGE. VANCO TROUGH LEVEL ON THE FOURTH DOSE. MONITOR RENAL FUNCTIONS/AND THROMBOCYTOPENIA. PATIENT SEEN BY GI. FOR EXCHANGE OF STENT/ERCP PER GI
[2016-07-25] MEDS: CEFEPIME IVPB SCH ×2 (05:30→16:54)
[2016-07-25] MEDS: DEXTROSE IVPB SCH ×2 (05:30→16:54)
--- NOTE | 2016-07-25 07:17 | CP.PCM.PN ---
<Debbie Moulton - Last Filed: 07/25/16 09:06> Subjective - Date & Time of Evaluation Date of Evaluation: 07/25/16 Time of Evaluation: 07:14 - Subjective Subjective: Gastroenterology Fellow/PGY4 Progress Note Patient denies abdominal pain. Tolerating full liquid diet. No bowel movement yesterday. A 12-point review of systems negative except for as above. Objective - Vital Signs/Intake and Output Vital Signs (last 24 hours): Temp Pulse Resp BP Pulse Ox 98.4 F 73 20 145/76 96 07/24/16 23:35 07/24/16 23:35 07/24/16 23:35 07/24/16 23:35 07/24/16 23:35 - Medications Medications: Current Medications Alprazolam (Xanax) 1 mg PO TID PRN PRN Reason: Anxiety Last Admin: 07/25/16 00:57 Dose: 1 mg Carvedilol (Coreg) 25 mg PO BID [facility] Last Admin: 07/24/16 17:22 Dose: 25 mg Enoxaparin Sodium (Lovenox) 40 mg SC DAILY [facility] Last Admin: 07/24/16 10:19 Dose: Not Given Hydrochlorothiazide (Microzide) 12.5 mg PO DAILY [facility] Last Admin: 07/24/16 10:18 Dose: 12.5 mg Cefepime HCl (Maxipime Iv 1 Gm Premix) 1 gm in 50 mls @ 100 mls/hr IVPB Q12H [facility] Last Admin: 07/25/16 05:30 Dose: 100 mls/hr Vancomycin/Sodium Chloride (Vancocin) 1 gm in 200 mls @ 133.333 mls/hr IVPB Q12H [facility] Stop: 07/28/16 21:01 Last Admin: 07/24/16 21:45 Dose: 133.333 mls/hr Lisinopril (Zestril) 10 mg PO DAILY [facility] Last Admin: 07/24/16 10:19 Dose: 10 mg Pantoprazole Sodium (Protonix Inj) 40 mg IVP DAILY [facility] Last Admin: 07/24/16 10:18 Dose: 40 mg - Constitutional Appears: Non-toxic, No Acute Distress - Head Exam Head Exam: ATRAUMATIC, NORMOCEPHALIC - Eye Exam Eye Exam: EOMI, PERRL Pupil Exam: PERRL. absent: Miosis, Mydriatic - ENT Exam ENT Exam: Mucous Membranes Moist, Normal Oropharynx - Neck Exam Neck Exam: Full ROM, Normal Inspection - Respiratory Exam Respiratory Exam: Clear to Ausculation Bilateral. absent: Rales, Rhonchi, Wheezes - Cardiovascular Exam Cardiovascular Exam: RRR, +S1, +S2. absent: Gallop, Rubs - GI/Abdominal Exam GI & Abdominal Exam: Soft, Normal Bowel Sounds. absent: Distended, Firm, Guarding, Rigid, Tenderness, Organomegaly, Rebound - Extremities Exam Extremities Exam: Full ROM. absent: Pedal Edema - Neurological Exam Neurological Exam: Alert, Awake - Psychiatric Exam Psychiatric exam: Normal Affect, Normal Mood - Skin Skin Exam: Dry, Intact, Normal Color, Warm Assessment and Plan - Assessment and Plan (Free Text) Assessment: 70 year old male with history of Hypertension, CAD s/p stents and CABG, left ICA 55% stenosis, and biliary stent placement 10/2014 with concern for choledocholithiasis presenting with abdominal pain. Active treatment of suspicion for acute cholangitis with improving leukocytosis and transaminitis. Prior ERCP 11/22/14 for CBD obstruction, suspicion for choledocholithiasis with noted meniscus during procedure. Further interventions of sphincterotomy and balloon sweep were not performed due to being clinically unstable per documentation. No prior colonoscopy. Plan: >will schedule ERCP for Tuesday >close monitoring of clinical status >monitor fever curve, WBC count, and signs of worsened abdominal pain >blood culture- no growth at 24 hours >continue Cefepime >daily LFTs >supportive care: pain control, antiemetics, PPI, IVFs >full liquid diet >close monitoring of clinical course <Obdulio Collier - Last Filed: 07/25/16 09:16> Objective - Vital Signs/Intake and Output Vital Signs (last 24 hours): Temp Pulse Resp BP Pulse Ox 98.4 F 73 20 145/76 96 07/24/16 23:35 07/24/16 23:35 07/24/16 23:35 07/24/16 23:35 07/24/16 23:35 Intake and Output: 07/25/16 07/25/16 06:59 18:59 Intake Total 300 Balance 300 - Medications Medications: Current Medications Alprazolam (Xanax) 1 mg PO TID PRN PRN Reason: Anxiety Last Admin: 07/25/16 00:57 Dose: 1 mg Carvedilol (Coreg) 25 mg PO BID [facility] Last Admin: 07/24/16 17:22 Dose: 25 mg Enoxaparin Sodium (Lovenox) 40 mg SC DAILY [facility] Last Admin: 07/24/16 10:19 Dose: Not Given Hydrochlorothiazide (Microzide) 12.5 mg PO DAILY [facility] Last Admin: 07/24/16 10:18 Dose: 12.5 mg Cefepime HCl (Maxipime Iv 1 Gm Premix) 1 gm in 50 mls @ 100 mls/hr IVPB Q12H [facility] Last Admin: 07/25/16 05:30 Dose: 100 mls/hr Vancomycin/Sodium Chloride (Vancocin) 1 gm in 200 mls @ 133.333 mls/hr IVPB Q12H [facility] Stop: 07/28/16 21:01 Last Admin: 07/25/16 08:51 Dose: 133.333 mls/hr Lisinopril (Zestril) 10 mg PO DAILY [facility] Last Admin: 07/24/16 10:19 Dose: 10 mg Pantoprazole Sodium (Protonix Inj) 40 mg IVP DAILY [facility] Last Admin: 07/24/16 10:18 Dose: 40 mg - Labs Labs: 07/25/16 07:24 07/25/16 07:24 Attending/Attestation - Attestation I have personally seen and examined this patient.: Yes I have fully participated in the care of the patient.: Yes I have reviewed all pertinent clinical information, including history, physical exam and plan: Yes Notes (Text): 07/25/16 09:12 I have seen and examined patient with GI fellow. No acute events overnight, he is seen sitting at bedside eating breakfast, appears comfortable. He continues to endorse intermittent RUQ abdominal pain though denies nausea, vomiting, fever /chills. Tolerating PO diet without difficulty. HTN CAD/CABG Abdominal pain, transaminitis - cholangitis - Liquid diet as tolerated - Continue with antibiotic therapy, awaiting blood culture results - LFTs/bilirubin continue to trend down, monitor - Will plan for ERCP on tuesday with biliary stent removal +/- sphincterotomy - Will continue to monitor patient clinical course
[2016-07-25 07:57] LABS: CHLORIDE 104 mmol/L (98-107); POTASSIUM 3.8 mmol/L (3.6-5.2); SODIUM 138 mmol/L (132-148)
[2016-07-25 07:59] LABS: ALB/GLOB RATIO 0.9 (1.0-2.1); AST/SGOT 47 U/L (17-59); BASO # 0.1 K/uL (0.0-0.2); BILIRUBIN,TOTAL 1.3 mg/dL (0.2-1.3); CARBON DIOXIDE 26 mmol/L (22-30); EOS % 12.6 % (0.0-4.0); GFR AFRICAN-AMERICAN > 60; HEMATOCRIT 38.5 % (35.0-51.0); LYMPH # 1.7 K/uL (1.0-4.3); LYMPH % 21.8 % (20.0-40.0); MEAN CELL VOLUME 85.1 fL (80.0-94.0); MEAN CORPUSCULAR HEMOGLOBIN 28.8 pg (27.0-31.0); MEAN CORPUSCULAR HGB CONC 33.9 g/dL (33.0-37.0); MEAN PLATELET VOLUME 10.8 fL (7.2-11.7); MONO # 1.1 K/uL (0.0-0.8); MONO % 14.5 % (0.0-10.0); RED CELL DISTRIBUTION WIDTH 14.1 % (11.5-14.5); WHITE BLOOD COUNT 7.6 K/uL (4.8-10.8)
[2016-07-25 08:00] LABS: ALKALINE PHOSPHATASE 140 U/L (38-126); ALT/SGPT 89 U/L (21-72); BLOOD UREA NITROGEN 12 mg/dL (9-20); CALCIUM 8.3 mg/dl (8.6-10.4); GLUCOSE,RANDOM 86 mg/dL (75-110)
[2016-07-25] MEDS: Vancomycin 1 gm/NS 200 ml 1 GM/200 ML BAG IVPB SCH ×2 (08:51→20:46)
[2016-07-25] MEDS: Enoxaparin 40 mg Syringe SC SCH (10:56)
--- NOTE | 2016-07-25 14:27 | CP.PCM.PN ---
Subjective - Date & Time of Evaluation Date of Evaluation: 07/25/16 Time of Evaluation: 14:25 - Subjective Subjective: CHIEF COMPLAINTS TODAY : LESS ABD.PAIN NO VOMITING ROS. HEENT : N. Resp : No cough, wheezing ,pleuritic CP ,or hemoptysis Cardio : No anginal CP, PND, orthopnea, palpitation GI : No abd.pain, n/v ,diarrhea or GI bleeding . 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 Musculoskel : No joint swelling , Derm : No rash Psych : Normal affect. Ext : No swelling ,calf pain PE. Pt. is alert awake in no distress. V.S As noted in the chart Head ,ear nose,throat and eyes : Normal. Neck : Supple with normal carotids. Lungs: Clear air entry. Heart : S1 & S2 normal with S4. No murmur. Abd : Soft non tender with normal bowel sounds. Neuro : Moves all ext. with no localized deficit. Ext : No edema with intact pulses.Non tender calves Derm : No rashes or decubitus ulcer. LABS/RADIOLOGY: ASSESSMENT/PLAN : BILIARY STENT EXCHANGE IV AB Objective - Vital Signs/Intake and Output Vital Signs (last 24 hours): Temp Pulse Resp BP Pulse Ox 97.8 F 60 16 138/70 96 07/25/16 07:30 07/25/16 07:30 07/25/16 07:30 07/25/16 10:56 07/24/16 23:35 Intake and Output: 07/25/16 07/25/16 11:59 23:59 Intake Total 300 Balance 300 - Medications Medications: Current Medications Alprazolam (Xanax) 1 mg PO TID PRN PRN Reason: Anxiety Last Admin: 07/25/16 00:57 Dose: 1 mg Carvedilol (Coreg) 25 mg PO BID [facility] Last Admin: 07/25/16 10:56 Dose: 25 mg Enoxaparin Sodium (Lovenox) 40 mg SC DAILY [facility] Last Admin: 07/25/16 10:56 Dose: 40 mg Hydrochlorothiazide (Microzide) 12.5 mg PO DAILY [facility] Last Admin: 07/25/16 10:56 Dose: 12.5 mg Cefepime HCl (Maxipime Iv 1 Gm Premix) 1 gm in 50 mls @ 100 mls/hr IVPB Q12H [facility] Last Admin: 07/25/16 05:30 Dose: 100 mls/hr Vancomycin/Sodium Chloride (Vancocin) 1 gm in 200 mls @ 133.333 mls/hr IVPB Q12H [facility] Stop: 07/28/16 21:01 Last Admin: 07/25/16 08:51 Dose: 133.333 mls/hr Lisinopril (Zestril) 10 mg PO DAILY [facility] Last Admin: 07/25/16 10:56 Dose: 10 mg Pantoprazole Sodium (Protonix Inj) 40 mg IVP DAILY [facility] Last Admin: 07/25/16 10:56 Dose: 40 mg - Labs Labs: 07/25/16 07:24 07/25/16 07:24 PT 11.3 SECONDS (9.7-12.2) 07/25/16 11:44 INR 1.0 07/25/16 11:44
[2016-07-26] MEDS: DEXTROSE IVPB SCH ×2 (05:25→17:54)
[2016-07-26] MEDS: CEFEPIME IVPB SCH ×2 (05:25→17:54)
--- NOTE | 2016-07-26 07:29 | CP.PCM.PN ---
<SaigeDebbie - Last Filed: 07/26/16 08:37> Subjective - Date & Time of Evaluation Date of Evaluation: 07/26/16 Time of Evaluation: 07:26 - Subjective Subjective: Gastroenterology Fellow/PGY4 Progress Note Patient notes slight upper abdominal discomfort. Tolerating full liquid diet. States he is hungry. One bowel movement yesterday. A 12-point review of systems negative except for as above. Objective - Vital Signs/Intake and Output Vital Signs (last 24 hours): Temp Pulse Resp BP Pulse Ox 97.7 F 56 L 20 128/65 98 07/26/16 07:23 07/26/16 07:23 07/26/16 07:23 07/26/16 07:23 07/26/16 00:00 Intake and Output: 07/26/16 07/26/16 06:59 18:59 Intake Total 750 Output Total 600 Balance 150 - Medications Medications: Current Medications Alprazolam (Xanax) 1 mg PO TID PRN PRN Reason: Anxiety Last Admin: 07/25/16 17:12 Dose: 1 mg Carvedilol (Coreg) 25 mg PO BID [facility] Last Admin: 07/25/16 17:09 Dose: 25 mg Enoxaparin Sodium (Lovenox) 40 mg SC DAILY [facility] Last Admin: 07/25/16 10:56 Dose: 40 mg Hydrochlorothiazide (Microzide) 12.5 mg PO DAILY [facility] Last Admin: 07/25/16 10:56 Dose: 12.5 mg Cefepime HCl (Maxipime Iv 1 Gm Premix) 1 gm in 50 mls @ 100 mls/hr IVPB Q12H [facility] Last Admin: 07/26/16 05:25 Dose: 100 mls/hr Vancomycin/Sodium Chloride (Vancocin) 1 gm in 200 mls @ 133.333 mls/hr IVPB Q12H [facility] Stop: 07/28/16 21:01 Last Admin: 07/25/16 20:46 Dose: 133.333 mls/hr Lisinopril (Zestril) 10 mg PO DAILY [facility] Last Admin: 07/25/16 10:56 Dose: 10 mg Pantoprazole Sodium (Protonix Inj) 40 mg IVP DAILY [facility] Last Admin: 07/25/16 10:56 Dose: 40 mg - Labs Labs: 07/25/16 07:24 07/25/16 07:24 PT 11.3 SECONDS (9.7-12.2) 07/25/16 11:44 INR 1.0 07/25/16 11:44 - Constitutional Appears: Non-toxic, No Acute Distress - Head Exam Head Exam: ATRAUMATIC, NORMOCEPHALIC - Eye Exam Eye Exam: EOMI, PERRL Pupil Exam: PERRL. absent: Miosis, Mydriatic - ENT Exam ENT Exam: Mucous Membranes Moist, Normal Oropharynx - Neck Exam Neck Exam: Full ROM, Normal Inspection - Respiratory Exam Respiratory Exam: Clear to Ausculation Bilateral. absent: Rales, Rhonchi, Wheezes - Cardiovascular Exam Cardiovascular Exam: RRR, +S1, +S2. absent: Gallop, Rubs - GI/Abdominal Exam GI & Abdominal Exam: Soft, Tenderness, Normal Bowel Sounds. absent: Distended, Firm, Guarding, Rigid, Organomegaly, Rebound Additional comments: minimal B/L UQ tenderness - Extremities Exam Extremities Exam: Full ROM. absent: Pedal Edema - Neurological Exam Neurological Exam: Alert, Awake - Psychiatric Exam Psychiatric exam: Normal Affect, Normal Mood - Skin Skin Exam: Dry, Intact, Normal Color, Warm Assessment and Plan - Assessment and Plan (Free Text) Assessment: 70 year old male with history of Hypertension, CAD s/p stents and CABG, left ICA 55% stenosis, and biliary stent placement 10/2014 with concern for choledocholithiasis presenting with abdominal pain. Active treatment of suspicion for acute cholangitis with improving leukocytosis and transaminitis. Prior ERCP 11/22/14 for CBD obstruction, suspicion for choledocholithiasis with noted meniscus during procedure. Further interventions of sphincterotomy and balloon sweep were not performed due to being clinically unstable per documentation. No prior colonoscopy. Plan: >ERCP tomorrow- biliary stent removal, possible sphincterotomy >full liquid, NPO after midnight >blood culture- no growth at 48 hours >continue Cefepime >continue to monitor >daily LFTs >supportive care: pain control >further recommendations after ERCP <Obdulio Collier - Last Filed: 07/26/16 08:49> Objective - Vital Signs/Intake and Output Vital Signs (last 24 hours): Temp Pulse Resp BP Pulse Ox 97.7 F 56 L 20 128/65 98 07/26/16 07:23 07/26/16 07:23 07/26/16 07:23 07/26/16 07:23 07/26/16 00:00 Intake and Output: 07/26/16 07/26/16 06:59 18:59 Intake Total 1200 Output Total 1400 Balance -200 - Medications Medications: Current Medications Alprazolam (Xanax) 1 mg PO TID PRN PRN Reason: Anxiety Last Admin: 07/25/16 17:12 Dose: 1 mg Carvedilol (Coreg) 25 mg PO BID [facility] Last Admin: 07/25/16 17:09 Dose: 25 mg Enoxaparin Sodium (Lovenox) 40 mg SC DAILY [facility] Last Admin: 07/25/16 10:56 Dose: 40 mg Hydrochlorothiazide (Microzide) 12.5 mg PO DAILY [facility] Last Admin: 07/25/16 10:56 Dose: 12.5 mg Cefepime HCl (Maxipime Iv 1 Gm Premix) 1 gm in 50 mls @ 100 mls/hr IVPB Q12H [facility] Last Admin: 07/26/16 05:25 Dose: 100 mls/hr Vancomycin/Sodium Chloride (Vancocin) 1 gm in 200 mls @ 133.333 mls/hr IVPB Q12H [facility] Stop: 07/28/16 21:01 Last Admin: 07/25/16 20:46 Dose: 133.333 mls/hr Lisinopril (Zestril) 10 mg PO DAILY [facility] Last Admin: 07/25/16 10:56 Dose: 10 mg Pantoprazole Sodium (Protonix Inj) 40 mg IVP DAILY [facility] Last Admin: 07/25/16 10:56 Dose: 40 mg - Labs Labs: 07/26/16 07:07 07/26/16 07:07 PT 11.3 SECONDS (9.7-12.2) 07/25/16 11:44 INR 1.0 07/25/16 11:44 Attending/Attestation - Attestation I have personally seen and examined this patient.: Yes I have fully participated in the care of the patient.: Yes I have reviewed all pertinent clinical information, including history, physical exam and plan: Yes Notes (Text): 07/26/16 08:46 I have seen and examined patient with GI fellow. No acute events overnight, he is seen ambulating in hallway, appears very comfortable. He denies abdominal pain, nausea, vomiting, fever/chills. Tolerating PO liquids without difficulty. Review of vitals from today are normal. HTN CAD/CABG Abdominal pain, acute cholangitis, h/o prior biliary stent placement - Liquid diet as tolerated - Continue with antibiotic therapy - LFTs continue to trend down, monitor - Follow up blood culture results - Will plan for ERCP tomorrow with biliary stent removal +/- sphincterotomy. NPO after midnight.
[2016-07-26 07:36] LABS: BASO # 0.1 K/uL (0.0-0.2); BASO % 1.3 % (0.0-2.0); EOS # 0.9 K/uL (0.0-0.7); EOS % 13.1 % (0.0-4.0); HEMATOCRIT 42.1 % (35.0-51.0); LYMPH # 1.6 K/uL (1.0-4.3); LYMPH % 23.4 % (20.0-40.0); MEAN CELL VOLUME 85.5 fL (80.0-94.0); MEAN CORPUSCULAR HEMOGLOBIN 29.3 pg (27.0-31.0); MEAN CORPUSCULAR HGB CONC 34.3 g/dL (33.0-37.0); MEAN PLATELET VOLUME 10.8 fL (7.2-11.7); MONO # 0.8 K/uL (0.0-0.8); MONO % 11.8 % (0.0-10.0); RED CELL DISTRIBUTION WIDTH 14.1 % (11.5-14.5); WHITE BLOOD COUNT 6.6 K/uL (4.8-10.8)
[2016-07-26 07:42] LABS: CHLORIDE 98 mmol/L (98-107)
[2016-07-26 07:43] LABS: POTASSIUM 3.8 mmol/L (3.6-5.2); SODIUM 138 mmol/L (132-148)
[2016-07-26 07:45] LABS: ALB/GLOB RATIO 0.9 (1.0-2.1); ALKALINE PHOSPHATASE 150 U/L (38-126); AST/SGOT 53 U/L (17-59); BILIRUBIN,TOTAL 1.4 mg/dL (0.2-1.3); BLOOD UREA NITROGEN 13 mg/dL (9-20); CARBON DIOXIDE 31 mmol/L (22-30); GFR AFRICAN-AMERICAN > 60; TOTAL PROTEIN 7.5 g/dL (6.3-8.3)
[2016-07-26 07:46] LABS: ALT/SGPT 78 U/L (21-72); GLUCOSE,RANDOM 90 mg/dL (75-110)
[2016-07-26] MEDS: Enoxaparin 40 mg Syringe SC SCH (09:42)
[2016-07-26] MEDS: Vancomycin 1 gm/NS 200 ml 1 GM/200 ML BAG IVPB SCH ×2 (11:06→23:52)
--- NOTE | 2016-07-26 13:25 | CP.PCM.PN ---
Subjective - Date & Time of Evaluation Date of Evaluation: 07/26/16 Time of Evaluation: 13:24 - Subjective Subjective: CHIEF COMPLAINTS TODAY : LESS ABD.PAIN NO VOMITING ROS. HEENT : N. Resp : No cough, wheezing ,pleuritic CP ,or hemoptysis Cardio : No anginal CP, PND, orthopnea, palpitation GI : No abd.pain, n/v ,diarrhea or GI bleeding . 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 Musculoskel : No joint swelling , Derm : No rash Psych : Normal affect. Ext : No swelling ,calf pain PE. Pt. is alert awake in no distress. V.S As noted in the chart Head ,ear nose,throat and eyes : Normal. Neck : Supple with normal carotids. Lungs: Clear air entry. Heart : S1 & S2 normal with S4. No murmur. Abd : Soft non tender with normal bowel sounds. Neuro : Moves all ext. with no localized deficit. Ext : No edema with intact pulses.Non tender calves Derm : No rashes or decubitus ulcer. LABS/RADIOLOGY: LFT NORMALISED ASSESSMENT/PLAN : ERCP IN AM Objective - Vital Signs/Intake and Output Vital Signs (last 24 hours): Temp Pulse Resp BP Pulse Ox 97.7 F 56 L 20 128/65 98 07/26/16 07:23 07/26/16 07:23 07/26/16 07:23 07/26/16 09:41 07/26/16 00:00 Intake and Output: 07/26/16 07/26/16 11:59 23:59 Intake Total 450 Output Total 800 Balance -350 - Medications Medications: Current Medications Alprazolam (Xanax) 1 mg PO TID PRN PRN Reason: Anxiety Last Admin: 07/25/16 17:12 Dose: 1 mg Carvedilol (Coreg) 25 mg PO BID [facility] Last Admin: 07/26/16 09:41 Dose: 25 mg Enoxaparin Sodium (Lovenox) 40 mg SC DAILY [facility] Last Admin: 07/26/16 09:42 Dose: 40 mg Hydrochlorothiazide (Microzide) 12.5 mg PO DAILY [facility] Last Admin: 07/26/16 09:41 Dose: 12.5 mg Cefepime HCl (Maxipime Iv 1 Gm Premix) 1 gm in 50 mls @ 100 mls/hr IVPB Q12H [facility] Last Admin: 07/26/16 05:25 Dose: 100 mls/hr Vancomycin/Sodium Chloride (Vancocin) 1 gm in 200 mls @ 133.333 mls/hr IVPB Q12H [facility] Stop: 07/28/16 21:01 Last Admin: 07/26/16 11:06 Dose: 133.333 mls/hr Lisinopril (Zestril) 10 mg PO DAILY [facility] Last Admin: 07/26/16 09:41 Dose: 10 mg Pantoprazole Sodium (Protonix Inj) 40 mg IVP DAILY [facility] Last Admin: 07/26/16 09:41 Dose: 40 mg - Labs Labs: 07/26/16 07:07 07/26/16 07:07 PT 11.3 SECONDS (9.7-12.2) 07/25/16 11:44 INR 1.0 07/25/16 11:44
--- NOTE | 2016-07-26 14:03 | CP.PCM.PN ---
Subjective - Date & Time of Evaluation Date of Evaluation: 07/26/16 Time of Evaluation: 14:02 - Subjective Subjective: CHIEF COMPLAINTS TODAY : AFEBRILE, C/O MILD abdominal pain TODAY No vomiting, no nausea. ON CLEAR LIQUIDS. ROS. HEENT : N. Resp : No cough, wheezing ,pleuritic CP ,or hemoptysis Cardio : No anginal CP, PND, orthopnea, palpitation GI : less abdominal pain , no n/v ,diarrhea or GI bleeding . 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 Ext : No swelling ,calf pain PE. Pt. is alert awake in no distress. V.S As noted in the chart Head ,ear nose,throat and eyes : Normal. Neck : Supple with normal carotids. Lungs: Clear air entry. Heart : S1 & S2 normal with S4. No murmur. Abd : Soft less tender EPIGASTRIC AND MID ABDOMEN with normal bowel sounds. Neuro : Moves all ext. with no localized deficit. Ext : No edema with intact pulses.Non tender calves Derm : No rashes or decubitus ulcer. LABS/RADIOLOGY: 07/26/16 wbc 6.6 esr 20 pLATELETS 108 --> 155 LFTS IMPROVING hEPATITIS SCREEN NEGATIVE HIV 1/2 ANTIBODY NEGATIVE.. -BLOOD CULTURES -VE so far. Objective - Vital Signs/Intake and Output Vital Signs (last 24 hours): Temp Pulse Resp BP Pulse Ox 97.7 F 56 L 20 128/65 98 07/26/16 07:23 07/26/16 07:23 07/26/16 07:23 07/26/16 09:41 07/26/16 00:00 Intake and Output: 07/26/16 07/26/16 06:59 18:59 Intake Total 1200 Output Total 1400 Balance -200 - Medications Medications: Current Medications Alprazolam (Xanax) 1 mg PO TID PRN PRN Reason: Anxiety Last Admin: 07/25/16 17:12 Dose: 1 mg Carvedilol (Coreg) 25 mg PO BID [facility] Last Admin: 07/26/16 09:41 Dose: 25 mg Enoxaparin Sodium (Lovenox) 40 mg SC DAILY [facility] Last Admin: 07/26/16 09:42 Dose: 40 mg Hydrochlorothiazide (Microzide) 12.5 mg PO DAILY [facility] Last Admin: 07/26/16 09:41 Dose: 12.5 mg Cefepime HCl (Maxipime Iv 1 Gm Premix) 1 gm in 50 mls @ 100 mls/hr IVPB Q12H [facility] Last Admin: 07/26/16 05:25 Dose: 100 mls/hr Vancomycin/Sodium Chloride (Vancocin) 1 gm in 200 mls @ 133.333 mls/hr IVPB Q12H [facility] Stop: 07/28/16 21:01 Last Admin: 07/26/16 11:06 Dose: 133.333 mls/hr Lisinopril (Zestril) 10 mg PO DAILY [facility] Last Admin: 07/26/16 09:41 Dose: 10 mg Pantoprazole Sodium (Protonix Inj) 40 mg IVP DAILY [facility] Last Admin: 07/26/16 09:41 Dose: 40 mg - Labs Labs: 07/26/16 07:07 07/26/16 07:07 PT 11.3 SECONDS (9.7-12.2) 07/25/16 11:44 INR 1.0 07/25/16 11:44 Assessment and Plan (1) Sepsis Status: Acute (2) Abdominal pain Status: Acute (3) Fever Status: Acute (4) Hyperbilirubinemia Status: Acute (5) S/P TURP (transurethral resection of prostate) Status: Acute (6) CAD (coronary artery disease) of artery bypass graft Status: Acute - Assessment and Plan (Free Text) Assessment: IMPRESSION; -SEPSIS/LEUKOCYTOSIS - JAUNDICE ? ASCENDING CHOLANGITIS/HX BILIARY STENT/CBD STRICTURE (2014 ) -S/P CABG / 2X STENTS-2008 -hISTORY OF PROSTATE SURGERY S/P TURP -PENILE PROSTHESES. -HYPERTENSION. -DM. PLAN ; CONTINUE iv CEFEPIME 1 G EVERY 12 HOURLY 07/23/16 CONTINUE iv VANCOMYCIN 1 G EVERY 12 HOURLY FOR STREPTOCOCCAL COVERAGE. VANCO TROUGH LEVEL ON THE FOURTH DOSE. MONITOR RENAL FUNCTIONS/AND THROMBOCYTOPENIA. FOR EXCHANGE OF STENT/? SPHINCTEROTOMY IN AM PER GI
[2016-07-26] MEDS ORDERED: Tears Naturale Forte (15ml) OU PRN (17:16)
[2016-07-26] MEDS ORDERED: Aritificial Tears (15ml) OU PRN (17:30)
[2016-07-27] MEDS: DEXTROSE IVPB SCH (05:25)
[2016-07-27] MEDS: CEFEPIME IVPB SCH (05:25)
[2016-07-27 07:03] LABS: BASO # 0.1 K/uL (0.0-0.2); BASO % 1.2 % (0.0-2.0); EOS # 1.2 K/uL (0.0-0.7); EOS % 15.9 % (0.0-4.0); HEMATOCRIT 43.1 % (35.0-51.0); LYMPH # 1.8 K/uL (1.0-4.3); LYMPH % 22.9 % (20.0-40.0); MEAN CELL VOLUME 84.8 fL (80.0-94.0); MEAN CORPUSCULAR HEMOGLOBIN 28.9 pg (27.0-31.0); MEAN CORPUSCULAR HGB CONC 34.1 g/dL (33.0-37.0); MEAN PLATELET VOLUME 10.4 fL (7.2-11.7); MONO # 0.9 K/uL (0.0-0.8); MONO % 11.7 % (0.0-10.0); RED CELL DISTRIBUTION WIDTH 14.2 % (11.5-14.5); WHITE BLOOD COUNT 7.7 K/uL (4.8-10.8)
[2016-07-27] MEDS ORDERED: Indomethacin 50 MG Suppository PR ONE (07:17)
[2016-07-27] MEDS ORDERED: Iohexol 240 (50 ml) ONE (07:18)
[2016-07-27 07:25] LABS: CHLORIDE 101 mmol/L (98-107); POTASSIUM 3.7 mmol/L (3.6-5.2); SODIUM 137 mmol/L (132-148)
[2016-07-27 07:27] LABS: BILIRUBIN,TOTAL 1.3 mg/dL (0.2-1.3); CARBON DIOXIDE 26 mmol/L (22-30); GFR AFRICAN-AMERICAN > 60
[2016-07-27 07:28] LABS: ALB/GLOB RATIO 0.9 (1.0-2.1); ALKALINE PHOSPHATASE 150 U/L (38-126); ALT/SGPT 79 U/L (21-72); AST/SGOT 52 U/L (17-59); BLOOD UREA NITROGEN 14 mg/dL (9-20); CALCIUM 9.1 mg/dl (8.6-10.4); GLUCOSE,RANDOM 96 mg/dL (75-110); TOTAL PROTEIN 7.9 g/dL (6.3-8.3)
[2016-07-27] MEDS ORDERED: Iodixanol 320 MG/ML 200 ML BOTTLE IV ONE (09:38)
[2016-07-27] MEDS: Enoxaparin 40 mg Syringe SC SCH (11:05)
[2016-07-27] MEDS ORDERED: HYDROmorphone 0.5 mg/0.5 ml ISec IVP PRN (11:52)
[2016-07-27] MEDS ORDERED: Lactated Ringer's 1,000 ML IV ONE (12:02)
--- NOTE | 2016-07-27 12:43 | CARD ---
APPROVED REPORT EKG Measurement Heart [id number] <Conclusion> Sinus tachycardia with occasional premature ventricular complexes Possible Left atrial enlargement Possible Anterior infarct, age undetermined Abnormal ECG
--- NOTE | 2016-07-27 13:09 | CP.PCM.PN ---
Subjective - Date & Time of Evaluation Date of Evaluation: 07/27/16 Time of Evaluation: 13:09 - Subjective Subjective: CHIEF COMPLAINTS TODAY : s/p ERCP/AND STENT REMOVAL TODAY 07/27 AFEBRILE, C/O MILD abdominal pain TODAY ROS. HEENT : N. Resp : No cough, wheezing ,pleuritic CP ,or hemoptysis Cardio : No anginal CP, PND, orthopnea, palpitation GI : less abdominal pain , no n/v ,diarrhea or GI bleeding . 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 Ext : No swelling ,calf pain PE. Pt. is alert awake in no distress. V.S As noted in the chart Head ,ear nose,throat and eyes : Normal. Neck : Supple with normal carotids. Lungs: Clear air entry. Heart : S1 & S2 normal with S4. No murmur. Abd : Soft less tender EPIGASTRIC AND MID ABDOMEN with normal bowel sounds. Neuro : Moves all ext. with no localized deficit. Ext : No edema with intact pulses.Non tender calves Derm : No rashes or decubitus ulcer. LABS/RADIOLOGY: BLOOD CULTURE 07/23 16 GRAM -VE RODS 07/26/16 wbc 6.6 esr 20 pLATELETS 108 --> 155 LFTS IMPROVING hEPATITIS SCREEN NEGATIVE HIV 1/2 ANTIBODY NEGATIVE.. -BLOOD CULTURES -VE so far. Objective - Vital Signs/Intake and Output Vital Signs (last 24 hours): Temp Pulse Resp BP Pulse Ox 96.4 F L 71 17 164/78 H 100 07/27/16 11:58 07/27/16 11:58 07/27/16 11:58 07/27/16 11:58 07/27/16 11:58 Intake and Output: 07/27/16 07/27/16 06:59 18:59 Intake Total 50 Output Total 600 Balance -550 - Medications Medications: Current Medications Alprazolam (Xanax) 1 mg PO TID PRN PRN Reason: Anxiety Last Admin: 07/26/16 18:11 Dose: 1 mg Artificial Tears (Artificial Tears) 0 ml OU Q4 PRN PRN Reason: Dry eyes Last Admin: 07/26/16 21:28 Dose: 1 drp Carvedilol (Coreg) 25 mg PO BID [facility] Last Admin: 07/27/16 10:04 Dose: Not Given Enoxaparin Sodium (Lovenox) 40 mg SC DAILY [facility] Last Admin: 07/27/16 11:05 Dose: Not Given Hydrochlorothiazide (Microzide) 12.5 mg PO DAILY [facility] Last Admin: 07/27/16 11:05 Dose: Not Given Hydromorphone HCl (Dilaudid) 0.5 mg IVP Q5M PRN PRN Reason: Pain, moderate (4-7) Stop: 07/27/16 13:52 Cefepime HCl (Maxipime Iv 1 Gm Premix) 1 gm in 50 mls @ 100 mls/hr IVPB Q12H [facility] Stop: 08/02/16 17:01 Last Admin: 07/27/16 05:25 Dose: 100 mls/hr Amikacin Sulfate 750 mg/ (Sodium Chloride) 103 mls @ 100 mls/hr IV STAT [facility] Stop: 07/27/16 13:43 Lisinopril (Zestril) 10 mg PO DAILY [facility] Last Admin: 07/27/16 11:08 Dose: Not Given Ondansetron HCl (Zofran Inj) 4 mg IVP ONCE PRN PRN Reason: Nausea/Vomiting Stop: 07/27/16 13:52 Pantoprazole Sodium (Protonix Inj) 40 mg IVP DAILY [facility] Last Admin: 07/27/16 10:06 Dose: Not Given - Labs Labs: 07/27/16 06:46 07/27/16 06:46 PT 11.3 SECONDS (9.7-12.2) 07/25/16 11:44 INR 1.0 07/25/16 11:44 Assessment and Plan (1) Sepsis Status: Acute (2) Abdominal pain Status: Acute (3) Fever Status: Acute (4) Hyperbilirubinemia Status: Acute (5) S/P TURP (transurethral resection of prostate) Status: Acute (6) CAD (coronary artery disease) of artery bypass graft Status: Acute - Assessment and Plan (Free Text) Assessment: IMPRESSION; -GRAM -VE BACTEREMIA. -S/P ERCP/STENT REMOVAL/SPHINCTEROTOMY.07/27/16 - CHOLANGITIS/HX BILIARY STENT/CBD STRICTURE (2014 ) -S/P CABG / 2X STENTS-2008 -hISTORY OF PROSTATE SURGERY S/P TURP -PENILE PROSTHESES. -HYPERTENSION. -DM. PLAN ; IV AMIKACIN 750MG IVPB STAT.07/27 INCREASE iv CEFEPIME 1 G EVERY 8HRLY HOURLY 07/23/16 DC iv VANCOMYCIN PT WILL NEED IV ABX X 10 DAYS MORE AWAIT IDENTIFICATION OF GNR AND SENSITIVITY. MONITOR RENAL FUNCTIONS/AND THROMBOCYTOPENIA.
--- NOTE | 2016-07-27 13:16 | CP.PCM.PN ---
Subjective - Date & Time of Evaluation Date of Evaluation: 07/27/16 Time of Evaluation: 13:14 - Subjective Subjective: CHIEF COMPLAINTS TODAY : LESS ABD.PAIN ROS. HEENT : N. Resp : No cough, wheezing ,pleuritic CP ,or hemoptysis Cardio : No anginal CP, PND, orthopnea, palpitation GI : No abd.pain, n/v ,diarrhea or GI bleeding . 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 Musculoskel : No joint swelling , Derm : No rash Psych : Normal affect. Ext : No swelling ,calf pain PE. Pt. is alert awake in no distress. V.S As noted in the chart Head ,ear nose,throat and eyes : Normal. Neck : Supple with normal carotids. Lungs: Clear air entry. Heart : S1 & S2 normal with S4. No murmur. Abd : Soft non tender with normal bowel sounds. Neuro : Moves all ext. with no localized deficit. Ext : No edema with intact pulses.Non tender calves Derm : No rashes or decubitus ulcer. LABS/RADIOLOGY: LFT NORMALISED ASSESSMENT/PLAN : S/P ERCP AND SPHINCEROTOMY WITH DILATATION AND EGD IV AB Objective - Vital Signs/Intake and Output Vital Signs (last 24 hours): Temp Pulse Resp BP Pulse Ox 96.4 F L 56 L 12 167/70 H 100 07/27/16 11:58 07/27/16 13:00 07/27/16 13:00 07/27/16 13:00 07/27/16 13:00 Intake and Output: 07/27/16 07/27/16 11:59 23:59 Intake Total 50 Output Total 600 Balance -550 - Medications Medications: Current Medications Alprazolam (Xanax) 1 mg PO TID PRN PRN Reason: Anxiety Last Admin: 07/26/16 18:11 Dose: 1 mg Artificial Tears (Artificial Tears) 0 ml OU Q4 PRN PRN Reason: Dry eyes Last Admin: 07/26/16 21:28 Dose: 1 drp Carvedilol (Coreg) 25 mg PO BID [facility] Last Admin: 07/27/16 10:04 Dose: Not Given Enoxaparin Sodium (Lovenox) 40 mg SC DAILY [facility] Last Admin: 07/27/16 11:05 Dose: Not Given Hydrochlorothiazide (Microzide) 12.5 mg PO DAILY [facility] Last Admin: 07/27/16 11:05 Dose: Not Given Hydromorphone HCl (Dilaudid) 0.5 mg IVP Q5M PRN PRN Reason: Pain, moderate (4-7) Stop: 07/27/16 13:52 Cefepime HCl (Maxipime Iv 1 Gm Premix) 1 gm in 50 mls @ 100 mls/hr IVPB Q12H [facility] Stop: 08/02/16 17:01 Last Admin: 07/27/16 05:25 Dose: 100 mls/hr Amikacin Sulfate 750 mg/ (Sodium Chloride) 103 mls @ 100 mls/hr IV STAT [facility] Stop: 07/27/16 13:43 Lisinopril (Zestril) 10 mg PO DAILY [facility] Last Admin: 07/27/16 11:08 Dose: Not Given Ondansetron HCl (Zofran Inj) 4 mg IVP ONCE PRN PRN Reason: Nausea/Vomiting Stop: 07/27/16 13:52 Pantoprazole Sodium (Protonix Inj) 40 mg IVP DAILY [facility] Last Admin: 07/27/16 10:06 Dose: Not Given - Labs Labs: 07/27/16 06:46 07/27/16 06:46 PT 11.3 SECONDS (9.7-12.2) 07/25/16 11:44 INR 1.0 07/25/16 11:44
--- NOTE | 2016-07-27 16:28 | RAD ---
PROCEDURE: Intraoperative Fluoroscopy. HISTORY: CHOLELITHIASIS FINDINGS: Fluoroscopic assistance was provided for ERCP. Total fluoroscopic time (continuous mode) utilized during the procedure: 290.7 seconds..
[2016-07-27 17:05] VITALS: RESP 20
--- NOTE | 2016-07-28 09:37 | CP.PCM.PN ---
<SaigeDebbie - Last Filed: 07/28/16 09:32> Subjective - Date & Time of Evaluation Date of Evaluation: 07/28/16 Time of Evaluation: 09:32 - Subjective Subjective: Gastroenterology Fellow/PGY4 Progress Note He is AAOx3. Patient is very jittery with flight in ideas. Notes he previously took medication for anxiety. Patient notes minimal upper abdominal discomfort. Tolerating cleat liquid diet. Notes daily bowel movement. A 12-point review of systems negative except for as above. Objective - Vital Signs/Intake and Output Vital Signs (last 24 hours): Temp Pulse Resp BP Pulse Ox 98.3 F 78 20 162/83 H 97 07/28/16 07:30 07/28/16 07:30 07/28/16 07:30 07/28/16 07:30 07/28/16 07:30 Intake and Output: 07/28/16 07/28/16 06:59 18:59 Intake Total 490 Output Total 400 Balance 90 - Medications Medications: Current Medications Alprazolam (Xanax) 1 mg PO TID PRN PRN Reason: Anxiety Last Admin: 07/27/16 19:28 Dose: 1 mg Artificial Tears (Artificial Tears) 0 ml OU Q4 PRN PRN Reason: Dry eyes Last Admin: 07/26/16 21:28 Dose: 1 drp Carvedilol (Coreg) 25 mg PO BID [facility] Last Admin: 07/27/16 17:59 Dose: 25 mg Enoxaparin Sodium (Lovenox) 40 mg SC DAILY [facility] Last Admin: 07/27/16 11:05 Dose: Not Given Hydrochlorothiazide (Microzide) 12.5 mg PO DAILY [facility] Last Admin: 07/27/16 11:05 Dose: Not Given Cefepime HCl 1 gm/ Dextrose 50 mls @ 100 mls/hr IVPB Q8H [facility] Last Admin: 07/28/16 05:22 Dose: 100 mls/hr Lisinopril (Zestril) 10 mg PO DAILY [facility] Last Admin: 07/27/16 11:08 Dose: Not Given Pantoprazole Sodium (Protonix Inj) 40 mg IVP DAILY [facility] Last Admin: 07/27/16 10:06 Dose: Not Given - Labs Labs: 07/27/16 06:46 07/27/16 06:46 PT 11.3 SECONDS (9.7-12.2) 07/25/16 11:44 INR 1.0 07/25/16 11:44 - Constitutional Appears: Non-toxic, No Acute Distress, Agitated - Head Exam Head Exam: ATRAUMATIC, NORMOCEPHALIC - Eye Exam Eye Exam: EOMI, PERRL Pupil Exam: PERRL. absent: Miosis, Mydriatic - ENT Exam ENT Exam: Mucous Membranes Moist, Normal Oropharynx - Neck Exam Neck Exam: Full ROM, Normal Inspection - Respiratory Exam Respiratory Exam: Clear to Ausculation Bilateral. absent: Rales, Rhonchi, Wheezes - Cardiovascular Exam Cardiovascular Exam: RRR, +S1, +S2. absent: Gallop, Rubs - GI/Abdominal Exam GI & Abdominal Exam: Soft, Tenderness, Normal Bowel Sounds. absent: Distended, Firm, Guarding, Rigid, Organomegaly, Rebound Additional comments: unchanged minimal epigastric discomfort to RUQ - Extremities Exam Extremities Exam: Normal Inspection. absent: Pedal Edema - Neurological Exam Neurological Exam: Alert, Awake - Psychiatric Exam Psychiatric exam: Normal Affect, Normal Mood - Skin Skin Exam: Dry, Intact, Normal Color, Warm Assessment and Plan - Assessment and Plan (Free Text) Assessment: 70 year old male with history of Hypertension, CAD s/p stents and CABG, left ICA 55% stenosis, and biliary stent placement 10/2014 with concern for choledocholithiasis presenting with abdominal pain. Prior ERCP 11/22/14 for CBD obstruction, suspicion for choledocholithiasis with noted meniscus during procedure. Further interventions of sphincterotomy and balloon sweep were not performed due to being clinically unstable per documentation. No prior colonoscopy. Active treatment of acute cholangitis POD1 (07/27/16) ERCP Plan: >POD 1 (07/27/16) EGD with salmon-colored mucosa at GE junction- biopsy taken gastritis- biopsy to assess for H pylori acquired duodenal stenosis s/p dilation ERCP with biliary stent removal, sphincterotomy, balloon sweep -stone and sludge removal >no signs of post-ERCP pancreatitis >continue Cefepime for total of 10 days-last doses on 08/02/16- 5PM >advance to full liquid diet, advance to low fat diet for dinner if tolerated >follow up EGD pathology >monitor LFTs >outpatient follow up with Dr. Kilgore in 2 weeks >will follow clinical course <ElayneBibianamartha - Last Filed: 07/28/16 10:46> Objective - Vital Signs/Intake and Output Vital Signs (last 24 hours): Temp Pulse Resp BP Pulse Ox 98.3 F 78 20 162/83 H 97 07/28/16 07:30 07/28/16 07:30 07/28/16 07:30 07/28/16 10:11 07/28/16 07:30 Intake and Output: 07/28/16 07/28/16 06:59 18:59 Intake Total 490 Output Total 400 Balance 90 - Medications Medications: Current Medications Alprazolam (Xanax) 1 mg PO TID PRN PRN Reason: Anxiety Last Admin: 07/28/16 10:12 Dose: 1 mg Artificial Tears (Artificial Tears) 0 ml OU Q4 PRN PRN Reason: Dry eyes Last Admin: 07/26/16 21:28 Dose: 1 drp Carvedilol (Coreg) 25 mg PO BID [facility] Last Admin: 07/28/16 10:11 Dose: 25 mg Enoxaparin Sodium (Lovenox) 40 mg SC DAILY [facility] Last Admin: 07/28/16 10:13 Dose: 40 mg Hydrochlorothiazide (Microzide) 12.5 mg PO DAILY [facility] Last Admin: 07/28/16 10:12 Dose: 12.5 mg Cefepime HCl 1 gm/ Dextrose 50 mls @ 100 mls/hr IVPB Q8H [facility] Last Admin: 07/28/16 05:22 Dose: 100 mls/hr Lisinopril (Zestril) 10 mg PO DAILY [facility] Last Admin: 07/28/16 10:12 Dose: 10 mg Pantoprazole Sodium (Protonix Inj) 40 mg IVP DAILY [facility] Last Admin: 07/28/16 10:12 Dose: 40 mg - Labs Labs: 07/27/16 06:46 07/27/16 06:46 PT 11.3 SECONDS (9.7-12.2) 07/25/16 11:44 INR 1.0 07/25/16 11:44 Attending/Attestation - Attestation I have personally seen and examined this patient.: Yes I have fully participated in the care of the patient.: Yes I have reviewed all pertinent clinical information, including history, physical exam and plan: Yes Notes (Text): Patient seen and examined with GI fellow. Agree with her note as documented above with the following additions/exceptions. This is a 70 year old male with history of HTN, CAD, prior cholangitis s/p ERCP with stent (2014) who is admitted with abdominal pain, abnormal LFTs, s/p EGD/ERCP yesterday with balloon dilation of duodenal stricture and ERCP with sphincterotomy, removal of previous stent and extraction of CBD stones/debris. He is overall improved this morning, complains of mild abdominal discomfort/bloating. Tolerating liquid diet. Having BM. Recommend continued supportive care, antibiotic therapy (to complete 10 day course), monitor LFTs. Advance diet as tolerated. 07/28/16 10:46
[2016-07-28 10:11] LABS: % CD3 (MATURE T CELL) 67 Percent (57-85)
[2016-07-28] MEDS: Enoxaparin 40 mg Syringe SC SCH (10:13)
[2016-07-28 11:55] LABS: BASO # 0.1 K/uL (0.0-0.2); EOS # 1.2 K/uL (0.0-0.7); EOS % 12.3 % (0.0-4.0); HEMATOCRIT 47.2 % (35.0-51.0); LYMPH % 11.1 % (20.0-40.0); MEAN CELL VOLUME 86.1 fL (80.0-94.0); MEAN CORPUSCULAR HGB CONC 33.7 g/dL (33.0-37.0); MEAN PLATELET VOLUME 10.6 fL (7.2-11.7); MONO % 10.4 % (0.0-10.0); RED CELL DISTRIBUTION WIDTH 13.7 % (11.5-14.5); WHITE BLOOD COUNT 9.5 K/uL (4.8-10.8)
[2016-07-28 12:04] LABS: CHLORIDE 97 mmol/L (98-107); POTASSIUM 4.1 mmol/L (3.6-5.2); SODIUM 141 mmol/L (132-148)
[2016-07-28 12:06] LABS: GFR AFRICAN-AMERICAN > 60
[2016-07-28 12:07] LABS: ALKALINE PHOSPHATASE 185 U/L (38-126); ALT/SGPT 90 U/L (21-72); AST/SGOT 69 U/L (17-59); BILIRUBIN,TOTAL 1.7 mg/dL (0.2-1.3); BLOOD UREA NITROGEN 15 mg/dL (9-20); CALCIUM 9.4 mg/dl (8.6-10.4); CARBON DIOXIDE 30 mmol/L (22-30); GLUCOSE,RANDOM 81 mg/dL (75-110); TOTAL PROTEIN 9.6 g/dL (6.3-8.3)
--- NOTE | 2016-07-28 12:58 | CP.PCM.PN ---
Subjective - Date & Time of Evaluation Date of Evaluation: 07/28/16 Time of Evaluation: 12:57 - Subjective Subjective: CHIEF COMPLAINTS TODAY : LESS ABD.PAIN BLD CULT POS GM -VE ROS. HEENT : N. Resp : No cough, wheezing ,pleuritic CP ,or hemoptysis Cardio : No anginal CP, PND, orthopnea, palpitation GI : No abd.pain, n/v ,diarrhea or GI bleeding . 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 Musculoskel : No joint swelling , Derm : No rash Psych : Normal affect. Ext : No swelling ,calf pain PE. Pt. is alert awake in no distress. V.S As noted in the chart Head ,ear nose,throat and eyes : Normal. Neck : Supple with normal carotids. Lungs: Clear air entry. Heart : S1 & S2 normal with S4. No murmur. Abd : Soft non tender with normal bowel sounds. Neuro : Moves all ext. with no localized deficit. Ext : No edema with intact pulses.Non tender calves Derm : No rashes or decubitus ulcer. LABS/RADIOLOGY: LFT NORMALISED ASSESSMENT/PLAN : S/P ERCP AND SPHINCEROTOMY WITH DILATATION AND EGD IV AB FOR 2 WEEKS WALDO Objective - Vital Signs/Intake and Output Vital Signs (last 24 hours): Temp Pulse Resp BP Pulse Ox 98.3 F 78 20 162/83 H 97 07/28/16 07:30 07/28/16 07:30 07/28/16 07:30 07/28/16 10:11 07/28/16 07:30 Intake and Output: 07/28/16 07/28/16 11:59 23:59 Intake Total 200 Output Total 400 Balance -200 - Medications Medications: Current Medications Alprazolam (Xanax) 1 mg PO TID PRN PRN Reason: Anxiety Last Admin: 07/28/16 10:12 Dose: 1 mg Artificial Tears (Artificial Tears) 0 ml OU Q4 PRN PRN Reason: Dry eyes Last Admin: 07/26/16 21:28 Dose: 1 drp Carvedilol (Coreg) 25 mg PO BID [facility] Last Admin: 07/28/16 10:11 Dose: 25 mg Enoxaparin Sodium (Lovenox) 40 mg SC DAILY [facility] Last Admin: 07/28/16 10:13 Dose: 40 mg Hydrochlorothiazide (Microzide) 12.5 mg PO DAILY [facility] Last Admin: 07/28/16 10:12 Dose: 12.5 mg Cefepime HCl 1 gm/ Dextrose 50 mls @ 100 mls/hr IVPB Q8H [facility] Last Admin: 07/28/16 05:22 Dose: 100 mls/hr Lisinopril (Zestril) 10 mg PO DAILY [facility] Last Admin: 07/28/16 10:12 Dose: 10 mg Pantoprazole Sodium (Protonix Inj) 40 mg IVP DAILY [facility] Last Admin: 07/28/16 10:12 Dose: 40 mg - Labs Labs: 07/28/16 11:44 07/28/16 11:44 PT 11.7 SECONDS (9.7-12.2) 07/28/16 11:44 INR 1.0 07/28/16 11:44
--- NOTE | 2016-07-28 14:20 | CP.PCM.PN ---
Subjective - Date & Time of Evaluation Date of Evaluation: 07/28/16 Time of Evaluation: 14:20 - Subjective Subjective: CHIEF COMPLAINTS TODAY : # POST PROCEDURE DAY 1 s/p ERCP/AND STENT REMOVAL /SPHINCTEROTOMY 07/27/16 AFEBRILE, C/O MILD abdominal pain TODAY FEELS WEAK. STILL ON CLD ROS. HEENT : N. Resp : No cough, wheezing ,pleuritic CP ,or hemoptysis Cardio : No anginal CP, PND, orthopnea, palpitation GI : less abdominal pain , no n/v ,diarrhea or GI bleeding . 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 Ext : No swelling ,calf pain PE. Pt. is alert awake in no distress. V.S As noted in the chart Head ,ear nose,throat and eyes : Normal. Neck : Supple with normal carotids. Lungs: Clear air entry. Heart : S1 & S2 normal with S4. No murmur. Abd : Soft less tender EPIGASTRIC AND MID ABDOMEN with HYPOACTIVE bowel sounds. Neuro : Moves all ext. with no localized deficit. Ext : No edema with intact pulses.Non tender calves Derm : No rashes or decubitus ulcer. LABS/RADIOLOGY: BLOOD CULTURE 07/23 16 GRAM -VE RODS (IDENTIFICATION PENDING ) 07/28/16 9.5 PLT ADEQUATE CREATININE 1.4/bun 15. vANCO RANDOM 19.5 07/27/16 - PATIENT OFF VANCOMYCIN NOW. LFTS 07/28 BILIRUBIN TOTAL 1.7 ,AST 69,ALT 90 AP 185 HEPATITIS SCREEN NEGATIVE HIV 1/2 ANTIBODY NEGATIVE.. Objective - Vital Signs/Intake and Output Vital Signs (last 24 hours): Temp Pulse Resp BP Pulse Ox 98.3 F 78 20 162/83 H 97 07/28/16 07:30 07/28/16 07:30 07/28/16 07:30 07/28/16 10:11 07/28/16 07:30 Intake and Output: 07/28/16 07/28/16 06:59 18:59 Intake Total 490 Output Total 400 Balance 90 - Medications Medications: Current Medications Alprazolam (Xanax) 1 mg PO TID PRN PRN Reason: Anxiety Last Admin: 07/28/16 10:12 Dose: 1 mg Artificial Tears (Artificial Tears) 0 ml OU Q4 PRN PRN Reason: Dry eyes Last Admin: 07/26/16 21:28 Dose: 1 drp Carvedilol (Coreg) 25 mg PO BID [facility] Last Admin: 07/28/16 10:11 Dose: 25 mg Enoxaparin Sodium (Lovenox) 40 mg SC DAILY [facility] Last Admin: 07/28/16 10:13 Dose: 40 mg Hydrochlorothiazide (Microzide) 12.5 mg PO DAILY [facility] Last Admin: 07/28/16 10:12 Dose: 12.5 mg Cefepime HCl 1 gm/ Dextrose 50 mls @ 100 mls/hr IVPB Q8H [facility] Last Admin: 07/28/16 05:22 Dose: 100 mls/hr Lisinopril (Zestril) 10 mg PO DAILY [facility] Last Admin: 07/28/16 10:12 Dose: 10 mg Pantoprazole Sodium (Protonix Inj) 40 mg IVP DAILY [facility] Last Admin: 07/28/16 10:12 Dose: 40 mg - Labs Labs: 07/28/16 11:44 07/28/16 11:44 PT 11.7 SECONDS (9.7-12.2) 07/28/16 11:44 INR 1.0 07/28/16 11:44 Assessment and Plan (1) Sepsis Status: Acute (2) Abdominal pain Status: Acute (3) Fever Status: Acute (4) Hyperbilirubinemia Status: Acute (5) S/P TURP (transurethral resection of prostate) Status: Acute (6) CAD (coronary artery disease) of artery bypass graft Status: Acute - Assessment and Plan (Free Text) Assessment: IMPRESSION; -GRAM -VE BACTEREMIA. -S/P ERCP/STENT REMOVAL/SPHINCTEROTOMY.07/27/16 - CHOLANGITIS/HX BILIARY STENT/CBD STRICTURE (2014 ) -S/P CABG / 2X STENTS-2008 -hISTORY OF PROSTATE SURGERY S/P TURP -PENILE PROSTHESES. -HYPERTENSION. -DM. -THROMBOCYTOPENIA IMPROVED. PLAN ; IV AMIKACIN 750MG IVPB STAT.07/27 0N iv CEFEPIME 1 G EVERY 8HRLY HOURLY 07/23/16 PT WILL NEED IV ABX X 10 DAYS MORE AWAIT IDENTIFICATION OF GNR AND SENSITIVITY. MONITOR RENAL FUNCTIONSCLOSELY
--- NOTE | 2016-07-29 06:51 | CP.PCM.PN ---
<Debbie Moulton - Last Filed: 07/29/16 06:49> Subjective - Date & Time of Evaluation Date of Evaluation: 07/29/16 Time of Evaluation: 06:49 - Subjective Subjective: Gastroenterology Fellow/PGY4 Progress Note Patient notes he slept better overnight with anxiolytic. Denies abdominal pain. Notes mild bloating sensation. Tolerated low fat diet for dinner. A 12-point review of systems negative except for as above. Objective - Vital Signs/Intake and Output Vital Signs (last 24 hours): Temp Pulse Resp BP Pulse Ox 98.2 F 84 20 107/65 98 07/29/16 00:00 07/29/16 00:00 07/29/16 00:00 07/29/16 00:00 07/29/16 00:00 Intake and Output: 07/28/16 07/29/16 18:59 06:59 Intake Total 200 350 Output Total 600 Balance 200 -250 - Medications Medications: Current Medications Alprazolam (Xanax) 1 mg PO TID PRN PRN Reason: Anxiety Last Admin: 07/28/16 21:42 Dose: 1 mg Artificial Tears (Artificial Tears) 0 ml OU Q4 PRN PRN Reason: Dry eyes Last Admin: 07/26/16 21:28 Dose: 1 drp Carvedilol (Coreg) 25 mg PO BID [facility] Last Admin: 07/28/16 17:49 Dose: 25 mg Enoxaparin Sodium (Lovenox) 40 mg SC DAILY [facility] Last Admin: 07/28/16 10:13 Dose: 40 mg Hydrochlorothiazide (Microzide) 12.5 mg PO DAILY [facility] Last Admin: 07/28/16 10:12 Dose: 12.5 mg Cefepime HCl 1 gm/ Dextrose 50 mls @ 100 mls/hr IVPB Q8H [facility] Last Admin: 07/29/16 05:46 Dose: 100 mls/hr Lisinopril (Zestril) 10 mg PO DAILY [facility] Last Admin: 07/28/16 10:12 Dose: 10 mg Pantoprazole Sodium (Protonix Inj) 40 mg IVP DAILY [facility] Last Admin: 07/28/16 10:12 Dose: 40 mg - Labs Labs: 07/28/16 11:44 07/28/16 11:44 PT 11.7 SECONDS (9.7-12.2) 07/28/16 11:44 INR 1.0 07/28/16 11:44 - Constitutional Appears: Non-toxic, No Acute Distress - Head Exam Head Exam: ATRAUMATIC, NORMOCEPHALIC - Eye Exam Eye Exam: EOMI, PERRL Pupil Exam: PERRL. absent: Miosis, Mydriatic - ENT Exam ENT Exam: Mucous Membranes Moist, Normal Oropharynx - Neck Exam Neck Exam: Full ROM, Normal Inspection - Respiratory Exam Respiratory Exam: Clear to Ausculation Bilateral. absent: Rales, Rhonchi, Wheezes - Cardiovascular Exam Cardiovascular Exam: RRR, +S1, +S2. absent: Gallop, Rubs - GI/Abdominal Exam GI & Abdominal Exam: Soft, Normal Bowel Sounds. absent: Distended, Firm, Guarding, Rigid, Tenderness, Organomegaly, Rebound - Extremities Exam Extremities Exam: Full ROM. absent: Pedal Edema - Neurological Exam Neurological Exam: Alert, Awake - Psychiatric Exam Psychiatric exam: Normal Affect, Normal Mood - Skin Skin Exam: Dry, Intact, Normal Color, Warm Assessment and Plan - Assessment and Plan (Free Text) Assessment: 70 year old male with history of Hypertension, CAD s/p stents and CABG, left ICA 55% stenosis, and cholangitis s/p biliary stent placement 10/2014 presenting with abdominal pain. Active treatment of GNR Bacteremia and acute cholangitis POD2 (07/27/16) ERCP with biliary stent removal, sphincterotomy, balloon sweep, stone and sludge removal. EGD 07/27/16 with salmon-colored mucosa at GE junction , gastritis, and acquired duodenal stenosis s/p dilation. No prior colonoscopy. 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 pylori negative >continue PPI daily >low fat diet >outpatient follow up with Dr. Kilgore in 2 weeks >will require EGD surveillance in one year >will follow clinical course <Obdulio Collier - Last Filed: 07/29/16 07:43> Objective - Vital Signs/Intake and Output Vital Signs (last 24 hours): Temp Pulse Resp BP Pulse Ox 98.2 F 84 20 107/65 98 07/29/16 00:00 07/29/16 00:00 07/29/16 00:00 07/29/16 00:00 07/29/16 00:00 Intake and Output: 07/29/16 07/29/16 06:59 18:59 Intake Total 350 250 Output Total 600 300 Balance -250 -50 - Medications Medications: Current Medications Alprazolam (Xanax) 1 mg PO TID PRN PRN Reason: Anxiety Last Admin: 07/28/16 21:42 Dose: 1 mg Artificial Tears (Artificial Tears) 0 ml OU Q4 PRN PRN Reason: Dry eyes Last Admin: 07/26/16 21:28 Dose: 1 drp Carvedilol (Coreg) 25 mg PO BID [facility] Last Admin: 07/28/16 17:49 Dose: 25 mg Enoxaparin Sodium (Lovenox) 40 mg SC DAILY [facility] Last Admin: 07/28/16 10:13 Dose: 40 mg Hydrochlorothiazide (Microzide) 12.5 mg PO DAILY [facility] Last Admin: 07/28/16 10:12 Dose: 12.5 mg Cefepime HCl 1 gm/ Dextrose 50 mls @ 100 mls/hr IVPB Q8H [facility] Last Admin: 07/29/16 05:46 Dose: 100 mls/hr Lisinopril (Zestril) 10 mg PO DAILY [facility] Last Admin: 07/28/16 10:12 Dose: 10 mg Pantoprazole Sodium (Protonix Inj) 40 mg IVP DAILY [facility] Last Admin: 07/28/16 10:12 Dose: 40 mg - Labs Labs: 07/28/16 11:44 07/28/16 11:44 PT 11.7 SECONDS (9.7-12.2) 07/28/16 11:44 INR 1.0 07/28/16 11:44 Attending/Attestation - Attestation I have personally seen and examined this patient.: Yes I have fully participated in the care of the patient.: Yes I have reviewed all pertinent clinical information, including history, physical exam and plan: Yes Notes (Text): 07/29/16 07:40 I have seen and examined patient with GI fellow. No acute events overnight, he is seen resting in bed comfortably. He denies abdominal pain, nausea, vomiting , diarrhea, fever/chills. Tolerating PO diet without difficulty. Review of vitals from this morning are normal. HTN CAD/CABG Acute cholangitis, bacteremia - s/p ERCP with stone extraction, sphincterotomy, duodenal stenosis s/p dilation - Continue with diet as tolerated - Follow up ID recommendations regarding length of antibiotic therapy for gram negative bacteremia - Continue to monitor LFTs - Esophageal biopsies suggestive of Garza's esophagus, continue with PPI therapy - No ongoing GI issues, from GI perspective ok to discharge patient home with outpatient follow up. Will sign off case, please reconsult as necessary, thank you.
[2016-07-29] MEDS: Enoxaparin 40 mg Syringe SC SCH (10:41)
--- NOTE | 2016-07-29 13:15 | CP.PCM.PN ---
Subjective - Date & Time of Evaluation Date of Evaluation: 07/29/16 Time of Evaluation: 13:15 - Subjective Subjective: CHIEF COMPLAINTS TODAY : LESS ABD.PAIN BLD CULT POS GM -VE ENTERO BACT CLOACA , SEN TO CEPEMINE ROS. HEENT : N. Resp : No cough, wheezing ,pleuritic CP ,or hemoptysis Cardio : No anginal CP, PND, orthopnea, palpitation GI : No abd.pain, n/v ,diarrhea or GI bleeding . 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 Musculoskel : No joint swelling , Derm : No rash Psych : Normal affect. Ext : No swelling ,calf pain PE. Pt. is alert awake in no distress. V.S As noted in the chart Head ,ear nose,throat and eyes : Normal. Neck : Supple with normal carotids. Lungs: Clear air entry. Heart : S1 & S2 normal with S4. No murmur. Abd : Soft non tender with normal bowel sounds. Neuro : Moves all ext. with no localized deficit. Ext : No edema with intact pulses.Non tender calves Derm : No rashes or decubitus ulcer. LABS/RADIOLOGY: LFT NORMALISED ASSESSMENT/PLAN : S/P ERCP AND SPHINCEROTOMY WITH DILATATION AND EGD IV AB FOR 2 WEEKS WALDO Objective - Vital Signs/Intake and Output Vital Signs (last 24 hours): Temp Pulse Resp BP Pulse Ox 97.5 F L 70 20 139/85 97 07/29/16 08:00 07/29/16 08:00 07/29/16 08:00 07/29/16 10:40 07/29/16 08:00 Intake and Output: 07/29/16 07/29/16 11:59 23:59 Intake Total 250 Output Total 300 Balance -50 - Medications Medications: Current Medications Alprazolam (Xanax) 1 mg PO TID PRN PRN Reason: Anxiety Last Admin: 07/28/16 21:42 Dose: 1 mg Artificial Tears (Artificial Tears) 0 ml OU Q4 PRN PRN Reason: Dry eyes Last Admin: 07/26/16 21:28 Dose: 1 drp Carvedilol (Coreg) 25 mg PO BID [facility] Last Admin: 07/29/16 10:40 Dose: 25 mg Enoxaparin Sodium (Lovenox) 40 mg SC DAILY [facility] Last Admin: 07/29/16 10:41 Dose: 40 mg Hydrochlorothiazide (Microzide) 12.5 mg PO DAILY [facility] Last Admin: 07/29/16 10:47 Dose: 12.5 mg Cefepime HCl 1 gm/ Dextrose 50 mls @ 100 mls/hr IVPB Q8H [facility] Last Admin: 07/29/16 05:46 Dose: 100 mls/hr Lisinopril (Zestril) 10 mg PO DAILY [facility] Last Admin: 07/29/16 10:41 Dose: 10 mg Pantoprazole Sodium (Protonix Inj) 40 mg IVP DAILY [facility] Last Admin: 07/29/16 10:38 Dose: 40 mg - Labs Labs: 07/28/16 11:44 07/28/16 11:44 PT 11.7 SECONDS (9.7-12.2) 07/28/16 11:44 INR 1.0 07/28/16 11:44
--- NOTE | 2016-07-29 14:00 | CP.PCM.PN ---
Subjective - Date & Time of Evaluation Date of Evaluation: 07/29/16 Time of Evaluation: 14:00 - Subjective Subjective: CHIEF COMPLAINTS TODAY : # POST PROCEDURE DAY 2 s/p ERCP/AND STENT REMOVAL /SPHINCTEROTOMY 07/27/16 AFEBRILE, FEELS WEAK. states diet is full of SALT. WANTS LOW NA DIET ROS. HEENT : N. Resp : No cough, wheezing ,pleuritic CP ,or hemoptysis Cardio : No anginal CP, PND, orthopnea, palpitation GI : less abdominal pain , no n/v ,diarrhea or GI bleeding . 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 Ext : No swelling ,calf pain PE. Pt. is alert awake in no distress. V.S As noted in the chart Head ,ear nose,throat and eyes : Normal. Neck : Supple with normal carotids. Lungs: Clear air entry. Heart : S1 & S2 normal with S4. No murmur. Abd : Soft less tender EPIGASTRIC AND MID ABDOMEN with HYPOACTIVE bowel sounds. Neuro : Moves all ext. with no localized deficit. Ext : No edema with intact pulses.Non tender calves Derm : No rashes or decubitus ulcer. LABS/RADIOLOGY: BLOOD CULTURE 07/23 16 ENTEROBACTER CLOACAE SP S-CEFEPIME 07/28/16 WBC 9.5 PLT ADEQUATE CREATININE 1.4/bun 15. .LFTS 07/28 BILIRUBIN TOTAL 1.7 ,AST 69,ALT 90 AP 185 LIPASE 102 N HEPATITIS SCREEN NEGATIVE HIV 1/2 ANTIBODY NEGATIVE.. Objective - Vital Signs/Intake and Output Vital Signs (last 24 hours): Temp Pulse Resp BP Pulse Ox 97.5 F L 70 20 139/85 97 07/29/16 08:00 07/29/16 08:00 07/29/16 08:00 07/29/16 10:40 07/29/16 08:00 Intake and Output: 07/29/16 07/29/16 06:59 18:59 Intake Total 350 250 Output Total 600 300 Balance -250 -50 - Medications Medications: Current Medications Alprazolam (Xanax) 1 mg PO TID PRN PRN Reason: Anxiety Last Admin: 07/28/16 21:42 Dose: 1 mg Artificial Tears (Artificial Tears) 0 ml OU Q4 PRN PRN Reason: Dry eyes Last Admin: 07/26/16 21:28 Dose: 1 drp Carvedilol (Coreg) 25 mg PO BID [facility] Last Admin: 07/29/16 10:40 Dose: 25 mg Enoxaparin Sodium (Lovenox) 40 mg SC DAILY [facility] Last Admin: 07/29/16 10:41 Dose: 40 mg Hydrochlorothiazide (Microzide) 12.5 mg PO DAILY [facility] Last Admin: 07/29/16 10:47 Dose: 12.5 mg Cefepime HCl 1 gm/ Dextrose 50 mls @ 100 mls/hr IVPB Q8H [facility] Last Admin: 07/29/16 13:16 Dose: 100 mls/hr Lisinopril (Zestril) 10 mg PO DAILY [facility] Last Admin: 07/29/16 10:41 Dose: 10 mg Pantoprazole Sodium (Protonix Inj) 40 mg IVP DAILY [facility] Last Admin: 07/29/16 10:38 Dose: 40 mg - Labs Labs: 07/28/16 11:44 07/28/16 11:44 PT 11.7 SECONDS (9.7-12.2) 07/28/16 11:44 INR 1.0 07/28/16 11:44 Assessment and Plan (1) Sepsis Status: Acute (2) Abdominal pain Status: Acute (3) Fever Status: Acute (4) Hyperbilirubinemia Status: Acute (5) S/P TURP (transurethral resection of prostate) Status: Acute (6) CAD (coronary artery disease) of artery bypass graft Status: Acute - Assessment and Plan (Free Text) Assessment: IMPRESSION; -ENTEROBACTER CLOACAE SP. BACTEREMIA -S/P ERCP/STENT REMOVAL/SPHINCTEROTOMY.07/27/16 - CHOLANGITIS/HX BILIARY STENT/CBD STRICTURE (2014 ) -S/P CABG / 2X STENTS-2008 -hISTORY OF PROSTATE SURGERY S/P TURP -PENILE PROSTHESES. -HYPERTENSION. -DM. -THROMBOCYTOPENIA IMPROVED. PLAN ; 2GM LOW NA HEART HEALTHY DIET ORDERED IV AMIKACIN 750MG IVPB STAT.07/27 0N iv CEFEPIME 1 G EVERY 8HRLY HOURLY 07/23/16.- 7DAYS F/U LFTS MAY BE ABLE TO SWITCH TO PO IF LFTS IMPROVE. REPEAT BLOOD CULTURE X2 SETS TO SEE IF BACTEREMIA CLEARED. NO NEED FOR PICC LINE . CASE DISCUSSED WITH FINANCIAL AID COORDINATOR MS NASCIMENTO.
[2016-07-30] MEDS: Enoxaparin 40 mg Syringe SC SCH (10:28)
--- NOTE | 2016-07-30 13:19 | CP.PCM.PN ---
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 HEENT : N. Resp : No cough, wheezing ,pleuritic CP ,or hemoptysis Cardio : No anginal CP, PND, orthopnea, palpitation GI : No abd.pain, n/v ,diarrhea or GI bleeding . PHOTOGRAMMETRIC TECH : No headache, vertigo, focal deficit. Musculoskel : No joint swelling , Derm : No rash Psych : Normal affect. Ext : No swelling ,calf pain PE. Pt. is alert awake in no distress. V.S As noted in the chart Head ,ear nose,throat and eyes : Normal. Neck : Supple with normal carotids. Lungs: Clear air entry. Heart : S1 & S2 normal with S4. No murmur. Abd : Soft non tender with normal bowel sounds. Neuro : Moves all ext. with no localized deficit. Ext : No edema with intact pulses.Non tender calves Derm : No rashes or decubitus ulcer. LABS/RADIOLOGY: LFT NORMALISED ASSESSMENT/PLAN : S/P ERCP AND SPHINCEROTOMY WITH DILATATION AND EGD IV AB FOR 2 WEEKS WALDO Objective - Vital Signs/Intake and Output Vital Signs (last 24 hours): Temp Pulse Resp BP Pulse Ox 98.4 F 90 20 116/66 97 07/30/16 07:32 07/30/16 07:32 07/30/16 07:32 07/30/16 10:28 07/30/16 07:32 Intake and Output: 07/30/16 07/30/16 11:59 23:59 Intake Total 170 Balance 170 - Medications Medications: Current Medications Alprazolam (Xanax) 1 mg PO TID PRN PRN Reason: Anxiety Last Admin: 07/29/16 17:33 Dose: 1 mg Artificial Tears (Artificial Tears) 0 ml OU Q4 PRN PRN Reason: Dry eyes Last Admin: 07/26/16 21:28 Dose: 1 drp Carvedilol (Coreg) 25 mg PO BID [facility] Last Admin: 07/30/16 10:28 Dose: 25 mg Enoxaparin Sodium (Lovenox) 40 mg SC DAILY [facility] Last Admin: 07/30/16 10:28 Dose: 40 mg Hydrochlorothiazide (Microzide) 12.5 mg PO DAILY [facility] Last Admin: 07/30/16 10:28 Dose: 12.5 mg Cefepime HCl 1 gm/ Dextrose 50 mls @ 100 mls/hr IVPB Q8H [facility] Last Admin: 07/30/16 12:42 Dose: 100 mls/hr Lisinopril (Zestril) 10 mg PO DAILY [facility] Last Admin: 07/30/16 10:28 Dose: 10 mg Pantoprazole Sodium (Protonix Inj) 40 mg IVP DAILY [facility] Last Admin: 07/30/16 10:28 Dose: 40 mg - Labs Labs: 07/28/16 11:44 07/28/16 11:44 PT 11.7 SECONDS (9.7-12.2) 07/28/16 11:44 INR 1.0 07/28/16 11:44
--- NOTE | 2016-07-30 18:04 | CP.PCM.PN ---
Subjective - Date & Time of Evaluation Date of Evaluation: 07/30/16 Time of Evaluation: 18:03 - Subjective Subjective: CHIEF COMPLAINTS TODAY : # POST PROCEDURE DAY 3 s/p ERCP/AND STENT REMOVAL /SPHINCTEROTOMY 07/27/16 AFEBRILE, FEELING good ROS. HEENT : N. Resp : No cough, wheezing ,pleuritic CP ,or hemoptysis Cardio : No anginal CP, PND, orthopnea, palpitation GI : less abdominal pain , no n/v ,diarrhea or GI bleeding . 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 Ext : No swelling ,calf pain PE. Pt. is alert awake in no distress. V.S As noted in the chart Head ,ear nose,throat and eyes : Normal. Neck : Supple with normal carotids. Lungs: Clear air entry. Heart : S1 & S2 normal with S4. No murmur. Abd : Soft less tender EPIGASTRIC AND MID ABDOMEN with NORMAL bowel sounds. Neuro : Moves all ext. with no localized deficit. Ext : No edema with intact pulses.Non tender calves Derm : No rashes or decubitus ulcer. LABS/RADIOLOGY: BLOOD CULTURE 07/23 16 ENTEROBACTER CLOACAE SP S-CEFEPIME 07/28/16 WBC 9.5 PLT ADEQUATE CREATININE 1.4/bun 15. .LFTS 07/28 BILIRUBIN TOTAL 1.7 ,AST 69,ALT 90 AP 185 LIPASE 102 N Objective - Vital Signs/Intake and Output Vital Signs (last 24 hours): Temp Pulse Resp BP Pulse Ox 98 F 72 20 158/87 H 99 07/30/16 15:00 07/30/16 16:17 07/30/16 15:00 07/30/16 17:52 07/30/16 16:17 Intake and Output: 07/30/16 07/30/16 06:59 18:59 Intake Total 170 290 Balance 170 290 - Medications Medications: Current Medications Alprazolam (Xanax) 1 mg PO TID PRN PRN Reason: Anxiety Last Admin: 07/29/16 17:33 Dose: 1 mg Artificial Tears (Artificial Tears) 0 ml OU Q4 PRN PRN Reason: Dry eyes Last Admin: 07/26/16 21:28 Dose: 1 drp Carvedilol (Coreg) 25 mg PO BID [facility] Last Admin: 07/30/16 17:52 Dose: 25 mg Enoxaparin Sodium (Lovenox) 40 mg SC DAILY [facility] Last Admin: 07/30/16 10:28 Dose: 40 mg Hydrochlorothiazide (Microzide) 12.5 mg PO DAILY [facility] Last Admin: 07/30/16 10:28 Dose: 12.5 mg Cefepime HCl 1 gm/ Dextrose 50 mls @ 100 mls/hr IVPB Q8H [facility] Last Admin: 07/30/16 12:42 Dose: 100 mls/hr Lisinopril (Zestril) 10 mg PO DAILY [facility] Last Admin: 07/30/16 10:28 Dose: 10 mg Pantoprazole Sodium (Protonix Ec Tab) 40 mg PO DAILY [facility] - Labs Labs: 07/28/16 11:44 07/28/16 11:44 PT 11.7 SECONDS (9.7-12.2) 07/28/16 11:44 INR 1.0 07/28/16 11:44 Assessment and Plan (1) Sepsis Status: Acute (2) Abdominal pain Status: Acute (3) Fever Status: Acute (4) Hyperbilirubinemia Status: Acute (5) S/P TURP (transurethral resection of prostate) Status: Acute (6) CAD (coronary artery disease) of artery bypass graft Status: Acute - Assessment and Plan (Free Text) Assessment: IMPRESSION; -ENTEROBACTER CLOACAE SP. BACTEREMIA -S/P ERCP/STENT REMOVAL/SPHINCTEROTOMY.07/27/16 - CHOLANGITIS/HX BILIARY STENT/CBD STRICTURE (2014 ) -S/P CABG / 2X STENTS-2008 -hISTORY OF PROSTATE SURGERY S/P TURP -PENILE PROSTHESES. -HYPERTENSION. -DM. -THROMBOCYTOPENIA IMPROVED. PLAN ; 2GM LOW NA HEART HEALTHY DIET ORDERED IV AMIKACIN 750MG IVPB STAT.07/27 0N iv CEFEPIME 1 G EVERY 8HRLY HOURLY 07/23/16.- 8 DAYS F/U LFTS MAY BE ABLE TO SWITCH TO PO IF LFTS IMPROVE. REPEAT BLOOD CULTURE X2 SETS TO SEE IF BACTEREMIA CLEARED. NO NEED FOR PICC LINE .
[2016-07-31 07:58] LABS: BASO # 0.1 K/uL (0.0-0.2); BASO % 1.5 % (0.0-2.0); EOS # 0.6 K/uL (0.0-0.7); EOS % 7.4 % (0.0-4.0); HEMATOCRIT 43.5 % (35.0-51.0); LYMPH # 1.7 K/uL (1.0-4.3); LYMPH % 21.3 % (20.0-40.0); MEAN CELL VOLUME 85.3 fL (80.0-94.0); MEAN PLATELET VOLUME 10.1 fL (7.2-11.7); MONO % 13.1 % (0.0-10.0); NRBC % 0.1 % (0.0-2.0); RED CELL DISTRIBUTION WIDTH 13.9 % (11.5-14.5); WHITE BLOOD COUNT 7.9 K/uL (4.8-10.8)
[2016-07-31 08:05] LABS: POTASSIUM 4.1 mmol/L (3.6-5.2)
[2016-07-31 08:08] LABS: CALCIUM 8.6 mg/dl (8.6-10.4)
[2016-07-31] MEDS: Enoxaparin 40 mg Syringe SC SCH (09:23)
[2016-07-31 09:32] VITALS: BP 127/78
[2016-07-31] MEDS ORDERED: Pantoprazole 40 mg EC Tab PO SCH (10:00)
[2016-07-31 12:28] LABS: BILIRUBIN,DIRECT 0.5 mg/dL (0.0-0.4); BILIRUBIN,TOTAL 0.9 mg/dL (0.2-1.3); TOTAL PROTEIN 8.4 g/dL (6.3-8.3)
[2016-07-31 12:48] VITALS: PULSE 70; TEMP 97.5; O2SAT 132
--- NOTE | 2016-07-31 13:09 | CP.PCM.PN ---
Subjective - Date & Time of Evaluation Date of Evaluation: 07/31/16 Time of Evaluation: 13:08 - Subjective Subjective: CHIEF COMPLAINTS TODAY : # POST PROCEDURE DAY 4 s/p ERCP/AND STENT REMOVAL /SPHINCTEROTOMY 07/27/16 AFEBRILE, APPETITE GOOD LFTS IMPROVING WBC -N. REPEAT BLOOD CULTURES -VE X24HRS . Objective - Vital Signs/Intake and Output Vital Signs (last 24 hours): Temp Pulse Resp BP Pulse Ox 97.5 F L 70 20 127/78 132 H 07/31/16 08:00 07/31/16 08:00 07/31/16 08:00 07/31/16 09:28 07/31/16 08:00 Intake and Output: 07/31/16 07/31/16 06:59 18:59 Intake Total 650 Output Total 400 Balance 250 - Medications Medications: Current Medications Alprazolam (Xanax) 1 mg PO TID PRN PRN Reason: Anxiety Last Admin: 07/30/16 21:07 Dose: 1 mg Artificial Tears (Artificial Tears) 0 ml OU Q4 PRN PRN Reason: Dry eyes Last Admin: 07/26/16 21:28 Dose: 1 drp Carvedilol (Coreg) 25 mg PO BID [facility] [place] Last Admin: 07/31/16 09:28 Dose: 25 mg Hydrochlorothiazide (Microzide) 12.5 mg PO DAILY [facility] [place] Last Admin: 07/31/16 09:22 Dose: 12.5 mg Cefepime HCl 1 gm/ Dextrose 50 mls @ 100 mls/hr IVPB Q8H [facility] [place] Last Admin: 07/31/16 05:45 Dose: 100 mls/hr Lisinopril (Zestril) 10 mg PO DAILY [facility] [place] Last Admin: 07/31/16 09:22 Dose: 10 mg Pantoprazole Sodium (Protonix Ec Tab) 40 mg PO DAILY [facility] [place] Last Admin: 07/31/16 09:22 Dose: 40 mg - Labs Labs: 07/31/16 07:48 07/31/16 07:48 PT 11.7 SECONDS (9.7-12.2) 07/28/16 11:44 INR 1.0 07/28/16 11:44 - Constitutional Appears: No Acute Distress - Head Exam Head Exam: NORMAL INSPECTION - Eye Exam Eye Exam: EOMI, PERRL. absent: Scleral icterus - ENT Exam ENT Exam: Normal Oropharynx - Respiratory Exam Respiratory Exam: Clear to Ausculation Bilateral - Cardiovascular Exam Cardiovascular Exam: REGULAR RHYTHM, +S1, +S2 - GI/Abdominal Exam GI & Abdominal Exam: Soft, Normal Bowel Sounds. absent: Tenderness - Extremities Exam Extremities Exam: absent: Calf Tenderness, Pedal Edema - Neurological Exam Neurological Exam: Alert, Awake, CN II-XII Intact, Oriented x3 - Psychiatric Exam Psychiatric exam: Normal Mood - Skin Skin Exam: Normal Color, Warm Assessment and Plan (1) Sepsis Status: Acute (2) Abdominal pain Status: Acute (3) Fever Status: Acute (4) Hyperbilirubinemia Status: Acute (5) S/P TURP (transurethral resection of prostate) Status: Acute (6) CAD (coronary artery disease) of artery bypass graft Status: Acute - Assessment and Plan (Free Text) Assessment: IMPRESSION; -ENTEROBACTER CLOACAE SP. BACTEREMIA -S/P ERCP/STENT REMOVAL/SPHINCTEROTOMY.07/27/16 - CHOLANGITIS/HX BILIARY STENT/CBD STRICTURE (2014 ) -S/P CABG / 2X STENTS-2008 -hISTORY OF PROSTATE SURGERY S/P TURP -PENILE PROSTHESES. -HYPERTENSION. -DM. -THROMBOCYTOPENIA IMPROVED. 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 F/U W GI .
--- NOTE | 2016-07-31 13:58 | CP.PCM.DIS ---
Provider - Provider Date of Admission: 07/24/16 16:41 Attending physician: Dann Sterling MD Time Spent in preparation of Discharge (in minutes): 35 Hospital Course - Lab Results Lab Results: Micro Results 07/29/16 03:00 Blood-Venous Blood Culture - Preliminary NO GROWTH AFTER 24 HOURS 07/29/16 02:30 Blood-Venous Blood Culture - Preliminary NO GROWTH AFTER 24 HOURS Most Recent Lab Values WBC 7.9 K/uL (4.8-10.8) 07/31/16 07:48 RBC 5.10 Mil/uL (4.40-5.90) 07/31/16 07:48 Hgb 14.8 g/dL (12.0-18.0) 07/31/16 07:48 Hct 43.5 % (35.0-51.0) 07/31/16 07:48 MCV 85.3 fL (80.0-94.0) 07/31/16 07:48 MCH 29.0 pg (27.0-31.0) 07/31/16 07:48 MCHC 34.0 g/dL (33.0-37.0) 07/31/16 07:48 RDW 13.9 % (11.5-14.5) 07/31/16 07:48 Plt Count 209 K/uL (130-400) 07/31/16 07:48 MPV 10.1 fL (7.2-11.7) 07/31/16 07:48 Neut % (Auto) 56.7 % (50.0-75.0) 07/31/16 07:48 Lymph % (Auto) 21.3 % (20.0-40.0) 07/31/16 07:48 [place] % (Auto) 13.1 % (0.0-10.0) H 07/31/16 07:48 Eos % (Auto) 7.4 % (0.0-4.0) H 07/31/16 07:48 Baso % (Auto) 1.5 % (0.0-2.0) 07/31/16 07:48 Neut # 4.5 K/uL (1.8-7.0) 07/31/16 07:48 Lymph # 1.7 K/uL (1.0-4.3) 07/31/16 07:48 [place] # 1.0 K/uL (0.0-0.8) H 07/31/16 07:48 Eos # 0.6 K/uL (0.0-0.7) 07/31/16 07:48 Baso # 0.1 K/uL (0.0-0.2) 07/31/16 07:48 Neutrophils % (Manual) 74 % (50-75) 07/24/16 07:11 Band Neutrophils % 5 % (0-2) H 07/24/16 07:11 Lymphocytes % (Manual) 10 % (20-40) L 07/24/16 07:11 Monocytes % (Manual) 6 % (0-10) 07/24/16 07:11 Eosinophils % (Manual) 5 % (0-4) H 07/24/16 07:11 Platelet Estimate Decreased (NORMAL) L 07/24/16 07:11 Large Platelets Present 07/23/16 08:03 RBC Morphology Normal 07/23/16 08:03 Anisocytosis (manual) Slight 07/24/16 07:11 ESR 20 mm/hr (0-15) H 07/24/16 07:11 PT 11.7 SECONDS (9.7-12.2) 07/28/16 11:44 INR 1.0 07/28/16 11:44 pO2 40 mm/Hg (30-55) 07/23/16 08:15 VBG pH 7.42 (7.32-7.43) 07/23/16 08:15 VBG pCO2 34 mmHg (40-60) L 07/23/16 08:15 VBG HCO3 23.0 mmol/L 07/23/16 08:15 VBG Total CO2 23.1 mmol/L (22-28) 07/23/16 08:15 VBG O2 Sat (Calc) 80.7 % (40-65) H 07/23/16 08:15 VBG Base Excess -1.7 mmol/L (0.0-2.0) L 07/23/16 08:15 VBG Potassium 3.4 mmol/L (3.6-5.2) L 07/23/16 08:15 Sodium 136.0 mmol/l (132-148) 07/23/16 08:15 Chloride 104.0 mmol/L (98-107) 07/23/16 08:15 Glucose 112 mg/dl (75-110) H 07/23/16 08:15 Lactate 1.4 mmol/L (0.7-2.1) 07/23/16 08:15 Sodium 136 mmol/L (132-148) 07/31/16 07:48 Potassium 4.1 mmol/L (3.6-5.2) 07/31/16 07:48 Chloride 102 mmol/L (98-107) 07/31/16 07:48 Carbon Dioxide 25 mmol/L (22-30) 07/31/16 07:48 Anion Gap 14 (10-20) 07/31/16 07:48 BUN 34 mg/dL (9-20) H 07/31/16 07:48 Creatinine 1.5 MG/DL (0.8-1.5) 07/31/16 07:48 Est GFR ( Amer) 56 07/31/16 07:48 Est GFR (Non-Af Amer) 46 07/31/16 07:48 POC Glucose (mg/dL) 117 mg/dL (65-110) H 07/23/16 07:36 Random Glucose 91 mg/dL (75-110) 07/31/16 07:48 Calcium 8.6 mg/dl (8.6-10.4) 07/31/16 07:48 Total Bilirubin 0.9 mg/dL (0.2-1.3) 07/31/16 12:07 Direct Bilirubin 0.5 mg/dL (0.0-0.4) H 07/31/16 12:07 AST 55 U/L (17-59) 07/31/16 12:07 ALT 62 U/L (21-72) 07/31/16 12:07 Alkaline Phosphatase 132 U/L (38-126) H D 07/31/16 12:07 Troponin I 0.0390 ng/mL (0.00-0.120) 07/23/16 08:03 C-React Prot High Sens > 15.00 mg/L (1.00-3.00) H 07/24/16 07:11 Total Protein 8.4 g/dL (6.3-8.3) H 07/31/16 12:07 Albumin 4.2 g/dL (3.5-5.0) 07/31/16 12:07 Globulin 4.2 gm/dL (2.2-3.9) H 07/31/16 12:07 Albumin/Globulin Ratio 1.0 (1.0-2.1) 07/31/16 12:07 Lipase 102 U/L (23-300) 07/28/16 11:44 Venous Blood Potassium 3.4 mmol/L (3.6-5.2) L 07/23/16 08:15 Urine Color Charisma (YELLOW) 07/23/16 09:29 Urine Clarity Clear (Clear) 07/23/16 09:29 Urine pH 5.0 (5.0-8.0) 07/23/16 09:29 Ur Specific [place] 1.010 (1.003-1.030) 07/23/16 09:29 Urine Protein 1+ mg/dL (NEGATIVE) H 07/23/16 09:29 Urine Glucose (UA) Normal mg/dL (Normal) 07/23/16 09:29 Urine Ketones Negative mg/dL (NEGATIVE) 07/23/16 09:29 Urine Blood 2+ (NEGATIVE) H 07/23/16 09:29 Urine Nitrate Negative (NEGATIVE) 07/23/16 09:29 Urine Bilirubin Negative (NEGATIVE) 07/23/16 09:29 Urine Urobilinogen 2.0 mg/dL (0.2-1.0) 07/23/16 09:29 Ur Leukocyte Esterase Neg [place]/uL (Negative) 07/23/16 09:29 Urine WBC (Auto) 1 /hpf (0-5) 07/23/16 09:29 Urine RBC (Auto) 3 /hpf (0-3) 07/23/16 09:29 Vancomycin Trough 25.9 ug/mL (5.0-10.0) H 07/26/16 21:13 Random Vancomycin 19.95 ug/mL 07/27/16 06:46 NINA 6 Profile Negative (NEGATIVE) 07/24/16 07:11 Absolute Lymphs (Flow) 1052 Cells/mcL (850-3900) 07/24/16 07:11 % CD3 Cells 67 Percent (57-85) 07/24/16 07:11 Absolute CD3 Count 704 Cells/mcL (840-3060) L 07/24/16 07:11 % CD4 Cells 51 Percent (30-61) 07/24/16 07:11 Absolute CD4 Count 534 Cells/mcL (490-1740) 07/24/16 07:11 T-Help/Suppress Ratio 3.17 Ratio (0.86-5.00) 07/24/16 07:11 % CD8 Cells 16 Percent (12-42) 07/24/16 07:11 Absolute CD8 Count 169 Cells/mcL (180-1170) L 07/24/16 07:11 Hepatitis A IgM Ab Negative (NEGATIVE) 07/23/16 20:06 Hep Bs Antigen Negative (NEGATIVE) 07/23/16 20:06 Hep B Core IgM Ab Negative (NEGATIVE) 07/23/16 20:06 Hepatitis C Antibody Negative (NEGATIVE) 07/24/16 07:11 HIV 1&2 Ag/Ab, 4th Gen Nonreactive (Nonreactive) 07/23/16 20:06 HIV 1&2 Antibody Screen Negative (NEGATIVE) 07/24/16 07:11 Influenza Typ A,B (EIA) Negative for flu a/b (NEGATIVE) 07/23/16 11:20 - Hospital Course Hospital Course: 70M c/o fever, abdominal pain, nausea, vomiting, headache since last night. NO VOMITING . NO CP PAST HIST. 2 BILIARY STENT 2015 CABG 2-3 V WITH 2 MORE STENTS HTN/DM BLADDER SURGERY/PENILE PRASTHESIS PER. PACEMAKER 2005, REMOCED 2007 PERSONAL HIST: Smoking. N Alcohol. N Allergy N Travel_- . FAMILY HIST : GI/ID WERE CONSULTED PT HAD POS BLD CULTURE , ENTEROBACT AND RESPONDED WITH IV AB GI PERFORMED ERCP AND ELARGEMENT OF BILIARY SPHINCTER PT IS D/C ON PO AB AND HOME MEDS Discharge Exam - Head Exam Head Exam: NORMAL INSPECTION Discharge Plan - Discharge Medications Prescriptions: Moxifloxacin [Avelox] 400 mg PO DAILY #5 tab - Follow Up Plan Condition: STABLE Disposition: HOME/ ROUTINE Instructions: Moxifloxacin (By mouth), Transurethral Prostatectomy (DC), Fever in Adults (GEN), Sepsis (GEN)
== END 2016-07-31 14:05 | disposition home or self-care (01) | DRG 898 ==
LOC: C.ER 07:18 → C.9E 11:58 → C.5T 12:45 → OBSVTOIN 07-24 16:41 → C.3T 07-25 14:58
PROVIDERS: ADMIT Internal Medicine Cardiovascular Disease; ATTEND Internal Medicine Cardiovascular Disease
PROC: 0FC98ZZ Extirpation of Matter from Common Bile Duct, Via Natural or Artificial Opening Endoscopic (ICD-10-PCS; 2016-07-27)
PROC: 0FPB8DZ Removal of Intraluminal Device from Hepatobiliary Duct, Via Natural or Artificial Opening Endoscopic (ICD-10-PCS; principal; 2016-07-27 10:45)
PROC: 0DB68ZX Excision of Stomach, Via Natural or Artificial Opening Endoscopic, Diagnostic (ICD-10-PCS; 2016-07-27 10:45)
DX: A41.9 Sepsis, unspecified organism (principal); K83.0 Cholangitis; D69.6 Thrombocytopenia, unspecified; K80.50 Calculus of bile duct without cholangitis or cholecystitis without obstruction; E11.9 Type 2 diabetes mellitus without complications; E78.00 Pure hypercholesterolemia, unspecified; F41.9 Anxiety disorder, unspecified; H40.9 Unspecified glaucoma; I10 Essential (primary) hypertension; I25.10 Atherosclerotic heart disease of native coronary artery without angina pectoris; K21.9 Gastro-esophageal reflux disease without esophagitis; Z85.46 Personal history of malignant neoplasm of prostate; Z87.891 Personal history of nicotine dependence; Z95.0 Presence of cardiac pacemaker; Z95.5 Presence of coronary angioplasty implant and graft; E80.6 Other disorders of bilirubin metabolism; K29.70 Gastritis, unspecified, without bleeding; Z79.4 Long term (current) use of insulin